=== PATIENT | female | born 1990 | race American Indian/Alaskan Native ===

== ENCOUNTER → 2018-03-31 | Outpatient (CLI) | payer BC ==
--- NOTE | 2018-03-31 16:27 | CT ---
EXAMINATION TYPE: CT sinus wo con DATE OF EXAM: 03/31/2018 COMPARISON: NONE HISTORY: Chronic sinusitis. CT DLP: [address] of the paranasal sinuses was performed in the axial and coronal planes. Bone and soft tissue settings are submitted. The paranasal sinuses demonstrate normal aeration and development. The paranasal sinuses are free of mucosal thickening or air fluid level. The osteal meatal units are patent bilaterally. The nasal septum is midline. No bony destructive changes are seen within the field of view. IMPRESSION: Normal unenhanced CT of the paranasal sinuses.
== END | disposition home or self-care (01) ==
LOC: RADCTMAIN 15:58
PROVIDERS: ATTEND Otolaryngology
DX: J32.9 Chronic sinusitis, unspecified (principal)
CPT/HCPCS: 70486

== ENCOUNTER 2018-06-15 07:16 | Day surgery (SDC) | payer BC ==
[2018-06-07 14:26] VITALS: BMI 24.7
[~2018-06-15 07:16] MED LIST: DEXAMETHASONE SOD PHOSPHATE 10 MG/ML 1 ML VIAL IV ONE; DEXAMETHASONE SOD PHOSPHATE 4 MG/ML 1 ML VIAL IV ONE; HYDROmorphone 0.5 MG/0.5 ML SYRINGE IVP PRN; LACTATED RINGERS 1,000 ML IV SCH; LIDOCAINE 1% 20 ML VIAL (10MG/ML) FOR IV START INTRADERMA PRN; MIDAZOLAM 2 MG/2 ML VIAL IV PRN; ONDANSETRON 4 MG/2 ML VIAL IVP ONE; OXYMETAZOLINE 0.05% NASL SPRAY 1 SPRAY BOTTLE NASAL ONE; ceFAZolin 1,000 MG in DEXTROSE/WATER 1 50ML.BAG IV ONE; fentaNYL (PF) 50 MCG/ML 2 ML AMP IV PRN
[2018-06-15] MEDS ORDERED: PROPOFOL 10 MG/ML 20 ML VIAL IV ONE (08:46)
[2018-06-15] MEDS ORDERED: DEXAMETHASONE SOD PHOS (MDV) 100 MG/10 ML VIAL ONE (08:46)
[2018-06-15] MEDS ORDERED: fentaNYL (PF) 50 MCG/ML 2 ML AMP ONE (08:46)
[2018-06-15] MEDS ORDERED: SUCCINYLCHOLINE CHLORIDE VIAL 200 MG/10 ML VIAL IV ONE (08:46)
[2018-06-15] MEDS ORDERED: MIDAZOLAM 2 MG/2 ML VIAL ONE (08:46)
[2018-06-15] MEDS ORDERED: LIDOCAINE 1% INJ 10MG/ML (20 ML MDV) ONE (08:46)
[2018-06-15] MEDS ORDERED: OFLOXACIN 0.3% OTIC DROPS 5 ML BTL BOTH EARS ONE (09:09)
[2018-06-15] MEDS ORDERED: LIDOCAINE 1%-EPI 1:100,000 20 ML VIAL SQ ONE ×2 (09:09)
[2018-06-15] MEDS ORDERED: OXYMETAZOLINE 0.05% NASL SPRAY 1 SPRAY BOTTLE NASAL ONE (09:15)
[2018-06-15] MEDS ORDERED: LACTATED RINGERS 1,000 ML IV ONE (09:16)
[2018-06-15] MEDS ORDERED: BACITRACIN 500 UNIT/GM OINT 28.4 GM TUBE TOPICAL ONE (09:27)
--- NOTE | 2018-06-15 10:10 | P.OP ---
Date of Procedure: 06/15/18 Preoperative Diagnosis: Chronic otitis media Eustachian tube dysfunction Adenoid hypertrophy Chronic adenoiditis Deviated nasal septum Inferior turbinate hypertrophy Chronic sinusitis Postoperative Diagnosis: Same Procedure(s) Performed: Bilateral ventilation tube placement Adenoidectomy Septoplasty Outfracture and submucous reduction resection of the inferior turbinates Bilateral endoscopic sinus surgery with bilateral anterior ethmoidectomy Anesthesia: YESSY Surgeon: Mukesh Munoz Estimated Blood Loss (ml): 10 Pathology: other (, sinus contents, nasal septal bone and cartilage) Condition: stable Disposition: PACU Indications for Procedure: This is a 28-year-old white female whose had difficulties with chronic and recurrent otitis media as well as eustachian tube dysfunction. She also has chronic nasal airway obstruction and anterior posterior nasal drainage as well as recurrent sinusitis Operative Findings: Bilateral serous otitis media, moderate adenoid hypertrophy, bilateral nasal deviation, inferior turbinate hypertrophy bilateral, mild mucosal thickening anterior ethmoid air cells Description of Procedure: The patient was brought in the operative suite and placed in a supine position. The patient underwent induction of general anesthesia with oral endotracheal intubation without difficulty. The patient was prepped and draped in usual aseptic fashion. The microscope was positioned over the right ear and cerumen was cleaned from the external auditory canal. An anteroinferior myringotomy was placed in radial fashion. A 1.1 mm collar bobbin ventilation tube was placed without difficulty. The serous effusion was aspirated. Ciloxan drops were then placed followed by sterile cotton ball. Attention was then turned to the left ear and the procedure was followed as it had been on the right. The table was turned 90 and patient positioned with head donut and shoulder roll and reprepped and draped in usual aseptic fashion. The McIvor mouth gag was placed and red Hernández catheters placed through the right nasal cavity and pulled through the oropharynx for soft palate retraction. Nasopharynx examined mirror exam and the adenoids were vaporized with suction cautery as they were mildly hypertrophied. This ablated the adenoids and hemostasis was gained with suction cautery. Nasopharyngeal catheter and mouth gag was removed. 1% lidocaine with 1 100,000 epinephrine was then infused submucosally both sides nasal septum as well as lateral nasal wall bilaterally. While taking vasoconstrictive effect the inferior turbinates were infractured with Barnstable elevator and then Coblation was used to ablate a portion of the submucosal soft tissue. These were then outfractured with the Barnstable elevator. A left hemitransfixion incision was made and mucoperichondrial and mucoperiosteal flap on on left elevated. Bony cartilaginous junction was disarticulated and the mucoperiosteal flap on the right was elevated. The flap on the right was elevated. Bony nasal septal deformities were removed Antonietta forceps and an inferior cartilaginous strip was removed leaving a full 1.5 cm caudal strut. Checking intranasally this corrected the nasoseptal deformities and the hemitransfixion incision was closed with 4-0 chromic suture. Proceeding on the left with endoscopic evaluation the middle turbinate was medialized with a Ben[place] elevator and partial uncinectomy was performed. Anterior ethmoidectomy was then performed with microdebrider 4 mm blade. Attention was then turned to the right where the procedure was followed as it had the left. Note that worse in the operating field for monitoring throughout the case and computed tomography scan was on the computer for review throughout the case. Once this completed a small pledget of nasal pore nasal dressing was placed middle meatus under direct visualization. Bilateral Hess airway splints coated bacitracin ointment were placed in nasal cavities and sutured trans-septally with a 4-0 nylon suture. Patient was then suctioned in oral gastric fashion and was allowed to emerge from general anesthesia having tolerated procedure well was excised suite and transferred to postop recovery area in satisfactory condition.
[2018-06-15] MEDS: MEPERIDINE 50 MG/ML SYRINGE IVP ONE ×2 (10:14→10:24)
[2018-06-15] MEDS ORDERED: KETOROLAC 30 MG/ML 1 ML VIAL IVP ONE (10:19)
[2018-06-15] MEDS ORDERED: ONDANSETRON 4 MG/2 ML VIAL IVP ONE (10:23)
[2018-06-15 10:33] VITALS: TEMP 97.1
[2018-06-15] MEDS ORDERED: HYDROcodone/APAP 5-325MG 1 EACH TAB PO ONE (12:51)
[2018-06-15 14:01] VITALS: BP 131/80; PULSE 84; RESP 16
== END 2018-06-15 14:08 | disposition home or self-care (01) ==
LOC: OR 07:16
PROVIDERS: ATTEND Otolaryngology
DX: J32.9 Chronic sinusitis, unspecified (principal); H65.23 Chronic serous otitis media, bilateral; H69.90 Unspecified Eustachian tube disorder, unspecified ear; J35.02 Chronic adenoiditis; J34.2 Deviated nasal septum; J34.3 Hypertrophy of nasal turbinates; D64.9 Anemia, unspecified; F41.9 Anxiety disorder, unspecified; J45.909 Unspecified asthma, uncomplicated; R51 Headache; Z79.51 Long term (current) use of inhaled steroids; Z79.899 Other long term (current) drug therapy; Z79.3 Long term (current) use of hormonal contraceptives; Z88.1 Allergy status to other antibiotic agents; Z88.2 Allergy status to sulfonamides; Z88.8 Allergy status to other drugs, medicaments and biological substances
CPT/HCPCS: 81025; 69436; 42831; 30520; 30140; 31254; J2250; J0330; J1100 ×2; J2175; J2405; J2001; J3010; J1885; J0690; J2704; 88300; 88305

== ENCOUNTER 2018-10-18 19:39 | Emergency (ER) | payer BC ==
[2018-10-18 19:47] VITALS: BP 151/82; PULSE 86; RESP 18; TEMP 98.4
[2018-10-18] MEDS ORDERED: SODIUM CHLORIDE 0.9% 1,000 ML IV STA (20:06)
[2018-10-18 20:46] LABS: Basophils % (A) 0 %; Eosinophils # (A) 0.2 k/uL (0-0.7); Eosinophils % (A) 3 %; HCT 45.6 % (34.0-46.0); HGB 15.5 gm/dL (11.4-16.0); Lymphocytes # (A) 2.4 k/uL (1.0-4.8); Lymphocytes % (A) 33 %; MCH 29.3 pg (25.0-35.0); MCV 86.3 fL (80.0-100.0); Mean Platelet Volume 7.2; Monocytes # (A) 0.4 k/uL (0-1.0); Monocytes % (A) 5 %; Neutrophils # (A) 4.2 k/uL (1.3-7.7); Neutrophils % (A) 58 %; Platelet Count 280 k/uL (150-450); RBC 5.29 m/uL (3.80-5.40); RDW 12.8 % (11.5-15.5); WBC 7.3 k/uL (3.8-10.6)
[2018-10-18 20:52] LABS: Appearance,Urine Cloudy (Clear); Bacteria,Urine Many /hpf; Bilirubin,Urine Negative (Negative); Blood,Urine Negative (Negative); Color,Urine Yellow; Glucose,Urine (UA) Negative (Negative); Ketones,Urine Trace (Negative); Leukocyte Esterase,Urine Moderate (Negative); Mucus,Urine Few /hpf; Nitrite,Urine Negative (Negative); PH, Urine 6.5 (5.0-8.0); Protein,Urine 2+ (Negative); RBC,Urine 3 /hpf (0-5); Specific Gravity,Urine 1.031 (1.001-1.035); Squamous Epithelial Cell,Urine 5 /hpf (0-4)
[2018-10-18 20:57] LABS: Albumin 4.6 g/dL (3.5-5.0); Calcium 9.4 mg/dL (8.4-10.2); Potassium 3.8 mmol/L (3.5-5.1); Total Bilirubin 0.6 mg/dL (0.2-1.3); Total Protein 7.6 g/dL (6.3-8.2)
--- NOTE | 2018-10-18 21:21 | ED ---
General Adult HPI - General Chief complaint: Upper Respiratory Infection Stated complaint: poss sinus infection, red eyes, head pressure Source: patient, RN notes reviewed, old records reviewed Mode of arrival: ambulatory Limitations: no limitations - History of Present Illness Initial comments: 28-year-old female patient with no prior past month history presents to ED for cough, sinus pressure, red eyes, sore throat. Patient states that this has been ongoing for approximately 1 month. Patient has been evaluated approximately 3 times for this issue. On 10/10 patient was evaluated in urgent care, prescribed amoxicillin for sinusitis, patient states that she finished this prescription. Patient states that over the month long duration The symptoms have been waxing and waning. Patient states the cough she is experiencing is dry and nonproductive. Patient states the sinus pressure she is experiencing is consistent with sinus infections she has had in the past. Denies nausea vomiting diarrhea, chest pain, shortness of breath, abdominal pain. Systemic: Pt denies fatigue, myalgia, rash. Pt denies weakness, night sweats, weight loss. Neuro: Pt denies headache, visual disturbances, syncope or pre-syncope. HEENT: Pt denies otalgia, rhinorrhea, pharyngitis or notable lymphadenopathy. Cardiopulmonary: Pt denies chest pain, SOB, heart palpitations, dyspnea on exertion. Abdominal/GI: Pt denies abdominal pain, n/v/d. : Pt denies dysuria, burning w/ urination, frequency/urgency. Denies new onset urinary or bowel incontinence. MSK: Pt denies myalgia, loss of strength or function in extremities. Neuro: Pt denies new onset weakness, paresthesias. - Related Data Home Medications Medication Instructions Recorded Confirmed Cetirizine HCl [Zyrtec] 10 mg PO HS 06/07/18 06/15/18 Fluticasone/Salmeterol [Advair 1 inhalation PO QAM 06/07/18 06/15/18 250-50 Diskus] Montelukast [Singulair] 10 mg PO DAILY 06/07/18 06/15/18 Sertraline HCl [Zoloft] 25 mg PO DAILY 06/07/18 06/15/18 l-Norgest/E.estradiol-E.estrad 1 each PO 1700 06/07/18 06/15/18 [Seasonique 0.15-0.03-0.01 Tab] Previous Rx's Medication Instructions Recorded Levofloxacin [Levaquin] 750 mg PO DAILY 7 Days #7 tab 10/18/18 Allergies Allergy/AdvReac Type Severity Reaction Status Date / Time diphenhydramine HCl Allergy Anaphylaxis Verified 10/18/18 19:45 [From Benadryl] milk Allergy Nausea Verified 10/18/18 19:45 sulfamethoxazole Allergy Unknown Verified 10/18/18 19:45 [From Bactrim] trimethoprim [From Bactrim] Allergy Unknown Verified 10/18/18 19:45 wheat Allergy Rash/Hives Verified 10/18/18 19:45 cashew nut AdvReac Nausea Verified 10/18/18 19:45 Review of Systems ROS Statement: Those systems with pertinent positive or pertinent negative responses have been documented in the HPI. ROS Other: All systems not noted in ROS Statement are negative. Past Medical History Past Medical History: Asthma, GERD/Reflux Additional Past Medical History / Comment(s): migraines, sinus infection, anemia , History of Any Multi-Drug Resistant Organisms: None Reported Past Surgical History: Adenoidectomy, Ear Surgery, Tonsillectomy Additional Past Surgical History / Comment(s): tubes in syd ears x 2 Past Anesthesia/Blood Transfusion Reactions: No Reported Reaction Past Psychological History: Anxiety, Depression Smoking Status: Never smoker - Past Family History Mother Family Medical History: Cancer General Exam - General Exam Comments Initial Comments: Constitutional: NAD, AOX3, Pt has pleasant affect. HEENT: NC/AT, trachea midline, neck supple. Posterior pharynx non erythematous, without exudates. External ears appear normal, without discharge. Mucous membranes moist. Eyes PERRLA, EOM intact. There is no scleral icterus. Bilateral injection noted. No pallor noted. Anterior cervical lymphadenopathy noted. Cardiopulmonary: RRR, no murmurs, rubs or gallops, no JVD noted. Lungs CTAB in anterior and posterior phillips. No peripheral edema. Abdominal exam: Abdomen soft and non-distended. Abdomen non-tender to palpation in all 4 quadrants. Bowel sounds active in LLQ. No hepatosplenomegaly. No ecchymosis Neuro: CN II-XII grossly intact. No nuchal rigidity. MSK: No posterior calf tenderness bilaterally, homans sign negative bilaterally. Posterior tibialis and radial pulse +2 bilaterally. Sensation intact in upper and lower extremities. Full active ROM in upper and lower extremities, 5/5 stregnth. Limitations: no limitations Course Vital Signs 10/18/18 19:45 Temperature 98.4 F Pulse Rate 86 Respiratory 18 Rate Blood Pressure 151/82 O2 Sat by Pulse 99 Oximetry Medical Decision Making - Medical Decision Making 28-year-old female patient with no prior past month history presents to ED for cough, sinus pressure, red eyes, sore throat. Patient states that this has been ongoing for approximately 1 month. Patient has been evaluated approximately 3 times for this issue. On 10/10 patient was evaluated in urgent care, prescribed amoxicillin for sinusitis, patient states that she finished this prescription. Patient states that over the month long duration The symptoms have been waxing and waning. Patient states the cough she is experiencing is dry and nonproductive. Patient states the sinus pressure she is experiencing is consistent with sinus infections she has had in the past. Denies nausea vomiting diarrhea, chest pain, shortness of breath, abdominal pain. Physical exam displayed mild bilateral injection, no purulent drainage from eyes. No other abnormal findings noted. Plain films displayed no acute process. CBC, CMP were not impressive. Heterophile antibody was negative. UA was not impressive. Patient to be prescribed Levaquin for sinusitis. Patient to follow-up with previously established ENT Dr. Munoz in AM. Patient followed PCP in 1-2 days. Patient to return to ED if new signs or symptoms develop. Case discussed with Dr. Burleson. - Lab Data Result diagrams: 10/18/18 20:25 10/18/18 20:25 Lab Results 10/18/18 10/18/18 10/18/18 Range/Units 20:25 20:25 20:25 WBC 7.3 (3.8-10.6) k/uL RBC 5.29 (3.80-5.40) m/uL Hgb 15.5 (11.4-16.0) gm/dL Hct 45.6 (34.0-46.0) % MCV 86.3 (80.0-100.0) fL MCH 29.3 (25.0-35.0) pg MCHC 34.0 (31.0-37.0) g/dL RDW 12.8 (11.5-15.5) % Plt Count 280 (150-450) k/uL Neutrophils % 58 % Lymphocytes % 33 % Monocytes % 5 % Eosinophils % 3 % Basophils % 0 % Neutrophils # 4.2 (1.3-7.7) k/uL Lymphocytes # 2.4 (1.0-4.8) k/uL Monocytes # 0.4 (0-1.0) k/uL Eosinophils # 0.2 (0-0.7) k/uL Basophils # 0.0 (0-0.2) k/uL Sodium (137-145) mmol/L Potassium (3.5-5.1) mmol/L Chloride (98-107) mmol/L Carbon Dioxide (22-30) mmol/L Anion Gap mmol/L BUN (7-17) mg/dL Creatinine (0.52-1.04) mg/dL Est GFR (CKD-EPI)AfAm (>60 ml/min/1.73 sqM) Est GFR (CKD-EPI)NonAf (>60 ml/min/1.73 sqM) Glucose (74-99) mg/dL Calcium (8.4-10.2) mg/dL Total Bilirubin (0.2-1.3) mg/dL AST (14-36) U/L ALT (9-52) U/L Alkaline Phosphatase (38-126) U/L Total Protein (6.3-8.2) g/dL Albumin (3.5-5.0) g/dL Urine Color Yellow Urine Appearance Cloudy H (Clear) Urine pH 6.5 (5.0-8.0) Ur Specific [place] 1.031 (1.001-1.035) Urine Protein 2+ H (Negative) Urine Glucose (UA) Negative (Negative) Urine Ketones Trace H (Negative) Urine Blood Negative (Negative) Urine Nitrite Negative (Negative) Urine Bilirubin Negative (Negative) Urine Urobilinogen 2.0 (<2.0) mg/dL Ur Leukocyte Esterase Moderate H (Negative) Urine RBC 3 (0-5) /hpf Urine WBC 2 (0-5) /hpf Ur Squamous Epith Cells 5 H (0-4) /hpf Urine Bacteria Many H (None) /hpf Urine Mucus Few H (None) /hpf Urine HCG, Qual Not Detected (Not Detectd) Heterophile Antibody (Negative) 10/18/18 10/18/18 Range/Units 20:25 20:25 WBC (3.8-10.6) k/uL RBC (3.80-5.40) m/uL Hgb (11.4-16.0) gm/dL Hct (34.0-46.0) % MCV (80.0-100.0) fL MCH (25.0-35.0) pg MCHC (31.0-37.0) g/dL RDW (11.5-15.5) % Plt Count (150-450) k/uL Neutrophils % % Lymphocytes % % Monocytes % % Eosinophils % % Basophils % % Neutrophils # (1.3-7.7) k/uL Lymphocytes # (1.0-4.8) k/uL Monocytes # (0-1.0) k/uL Eosinophils # (0-0.7) k/uL Basophils # (0-0.2) k/uL Sodium 141 (137-145) mmol/L Potassium 3.8 (3.5-5.1) mmol/L Chloride 105 (98-107) mmol/L Carbon Dioxide 27 (22-30) mmol/L Anion Gap 9 mmol/L BUN 11 (7-17) mg/dL Creatinine 1.00 (0.52-1.04) mg/dL Est GFR (CKD-EPI)AfAm 90 (>60 ml/min/1.73 sqM) Est GFR (CKD-EPI)NonAf 78 (>60 ml/min/1.73 sqM) Glucose 88 (74-99) mg/dL Calcium 9.4 (8.4-10.2) mg/dL Total Bilirubin 0.6 (0.2-1.3) mg/dL AST 29 (14-36) U/L ALT 26 (9-52) U/L Alkaline Phosphatase 43 (38-126) U/L Total Protein 7.6 (6.3-8.2) g/dL Albumin 4.6 (3.5-5.0) g/dL Urine Color Urine Appearance (Clear) Urine pH (5.0-8.0) Ur Specific [place] (1.001-1.035) Urine Protein (Negative) Urine Glucose (UA) (Negative) Urine Ketones (Negative) Urine Blood (Negative) Urine Nitrite (Negative) Urine Bilirubin (Negative) Urine Urobilinogen (<2.0) mg/dL Ur Leukocyte Esterase (Negative) Urine RBC (0-5) /hpf Urine WBC (0-5) /hpf Ur Squamous Epith Cells (0-4) /hpf Urine Bacteria (None) /hpf Urine Mucus (None) /hpf Urine HCG, Qual (Not Detectd) Heterophile Antibody Negative (Negative) Disposition Clinical Impression: Sinusitis Disposition: HOME SELF-CARE Instructions: Urinary Tract Infection in Women (ED), Sinusitis (ED) Prescriptions: Levofloxacin [Levaquin] 750 mg PO DAILY 7 Days #7 tab Is patient prescribed a controlled substance at d/c from ED?: No Referrals: Dereck Ho MD [Primary Care Provider] - 1-2 days Mukesh Munoz MD [STAFF PHYSICIAN] - 1-2 days Time of Disposition: 22:06
--- NOTE | 2018-10-18 21:41 | XR ---
EXAMINATION: XR chest 2V DATE AND TIME: 10/18/2018 9:16 PM CLINICAL INDICATION: PHH; Pain TECHNIQUE: Departmental protocol COMPARISON: 03/24/2008 FINDINGS: The lungs are clear. The pleural spaces are negative. The cardiac silhouette is not enlarged. The remainder of the mediastinal silhouette is unremarkable. The skeletal structures and soft tissues are negative for acute findings. IMPRESSION: NO ACUTE PROCESS.
== END 2018-10-18 22:18 | disposition home or self-care (01) ==
LOC: EC 19:39
DX: J32.9 Chronic sinusitis, unspecified (principal); J45.909 Unspecified asthma, uncomplicated; F41.9 Anxiety disorder, unspecified; F32.9 Major depressive disorder, single episode, unspecified; Z79.51 Long term (current) use of inhaled steroids; Z79.899 Other long term (current) drug therapy; Z88.2 Allergy status to sulfonamides; Z88.8 Allergy status to other drugs, medicaments and biological substances; Z91.011 Allergy to milk products; Z91.018 Allergy to other foods
CPT/HCPCS: 36415; 71046; 80053; 81001; 81025; 85025; 86308; 96360; 96361; 99284

== ENCOUNTER → 2019-02-09 | Day surgery (SDC) | payer BC ==
[~2019-02-09] MED LIST changes: -DEXAMETHASONE SOD PHOSPHATE 10 MG/ML 1 ML VIAL IV ONE; -DEXAMETHASONE SOD PHOSPHATE 4 MG/ML 1 ML VIAL IV ONE; -HYDROmorphone 0.5 MG/0.5 ML SYRINGE IVP PRN; +LIDOCAINE 1% INJ 10MG/ML (20 ML MDV) ONE; -MIDAZOLAM 2 MG/2 ML VIAL IV PRN; -ONDANSETRON 4 MG/2 ML VIAL IVP ONE; -OXYMETAZOLINE 0.05% NASL SPRAY 1 SPRAY BOTTLE NASAL ONE; +PROPOFOL 10 MG/ML 20 ML VIAL IV ONE; -ceFAZolin 1,000 MG in DEXTROSE/WATER 1 50ML.BAG IV ONE; -fentaNYL (PF) 50 MCG/ML 2 ML AMP IV PRN; +fentaNYL (PF) 50 MCG/ML 2 ML AMP ONE
[2019-02-09 12:15] VITALS: RESP 16; TEMP 98.2
[2019-02-09 13:51] VITALS: BP 123/74; PULSE 64
--- NOTE | 2019-02-09 13:57 | P.PCN ---
Date of Procedure: 02/09/19 Procedure(s) Performed: Procedure: Esophagogastroduodenoscopy and biopsy. Preoperative diagnosis: Epigastric pain. Postoperative diagnosis: Gastritis. Preparation and sedation: Was provided by anesthesia. Brief clinical history: The patient is a 28-year-old female who I have seen in 2016 because of epigastric and hypogastric pain. She returned for follow-up earlier this month because of recurrence of her symptoms that started around 2 months ago. Her symptoms occur immediately after eating. She has been having issues with diarrhea as well. Family history of colitis in her grandmother. Procedure: With the patient on her left lateral decubitus position and after informed consent and adequate sedation, I passed the Olympus-GIF H 190 video upper endoscope through the cricopharyngeus down the esophagus. GE junction was around 39 cm from the incisors and there was no obvious hiatal hernia or any evidence of esophagitis or complicated reflux disease. The endoscope was then passed into the stomach which was insufflated with air and inspected in detail including the retroflex view in the cardia. There was mottling and erythema in the stomach most notable in the antrum and there was a small polypoid elevation in the cardia very close to the GE junction which probably represent regenera tive polyp. Pyloric channel, duodenal bulb, post bulbar area and descending duodenum appeared within normal limits. I obtained biopsies from the duodenum, antrum and esophagus as well as a separate biopsy of the cardia polyp then the endoscope was withdrawn. The patient tolerated the procedure well. Plan: The patient was reassured. Will await biopsy results. I will keep you updated on her progress. She will follow-up with you as planned.
== END ==
LOC: ORWHC2ENDO 11:54
DX: K29.50 Unspecified chronic gastritis without bleeding (principal); K21.0 Gastro-esophageal reflux disease with esophagitis; K31.7 Polyp of stomach and duodenum; J45.909 Unspecified asthma, uncomplicated; Z79.51 Long term (current) use of inhaled steroids; Z79.899 Other long term (current) drug therapy; Z88.1 Allergy status to other antibiotic agents; Z88.8 Allergy status to other drugs, medicaments and biological substances
CPT/HCPCS: 81025; 43239; J2001; J3010; J2704; 88305

== ENCOUNTER 2019-04-30 19:32 | Emergency (ER) | payer BC ==
[2019-04-30 19:38] VITALS: BP 143/83; PULSE 69; RESP 18; TEMP 98.1
[2019-04-30] MEDS ORDERED: SODIUM CHLORIDE 0.9% 1,000 ML IV STA (19:43)
[2019-04-30 20:03] LABS: Basophils % (A) 0 %; Eosinophils # (A) 0.2 k/uL (0-0.7); Eosinophils % (A) 4 %; HCT 40.1 % (34.0-46.0); HGB 13.4 gm/dL (11.4-16.0); Lymphocytes # (A) 1.7 k/uL (1.0-4.8); Lymphocytes % (A) 33 %; MCH 29.2 pg (25.0-35.0); MCHC 33.3 g/dL (31.0-37.0); MCV 87.8 fL (80.0-100.0); Mean Platelet Volume 6.9; Monocytes # (A) 0.3 k/uL (0-1.0); Monocytes % (A) 6 %; Neutrophils # (A) 2.8 k/uL (1.3-7.7); Neutrophils % (A) 56 %; Platelet Count 253 k/uL (150-450); RBC 4.57 m/uL (3.80-5.40); RDW 12.9 % (11.5-15.5); WBC 5.1 k/uL (3.8-10.6)
[2019-04-30 20:06] LABS: Appearance,Urine Clear (Clear); Bilirubin,Urine Negative (Negative); Blood,Urine Negative (Negative); Color,Urine Yellow; Glucose,Urine (UA) Negative (Negative); Ketones,Urine Negative (Negative); Leukocyte Esterase,Urine Small (Negative); Nitrite,Urine Negative (Negative); Protein,Urine Negative (Negative); RBC,Urine 3 /hpf (0-5); Squamous Epithelial Cell,Urine 2 /hpf (0-4); WBC,Urine 29 /hpf (0-5)
[2019-04-30 20:17] LABS: ALT 25 U/L (9-52); AST 25 U/L (14-36); African American GFR (CKD) >90 (>60 ml/min/1.73 sqM); Albumin 4.2 g/dL (3.5-5.0); Alkaline Phosphatase 61 U/L (38-126); Amylase 42 U/L (30-110); Anion Gap 8 mmol/L; Blood Urea Nitrogen 11 mg/dL (7-17); Carbon Dioxide 28 mmol/L (22-30); Chloride 105 mmol/L (98-107); Glucose 96 mg/dL (74-99); Lipase 68 U/L (23-300); Potassium 4.3 mmol/L (3.5-5.1); Sodium 141 mmol/L (137-145); Total Bilirubin 0.5 mg/dL (0.2-1.3); Total Protein 6.9 g/dL (6.3-8.2)
--- NOTE | 2019-04-30 20:31 | ED ---
Abdominal Pain HPI - General Chief Complaint: Abdominal Pain Stated Complaint: Abd pain Time Seen by Provider: 04/30/19 19:42 Source: patient Mode of arrival: ambulatory Limitations: no limitations - History of Present Illness Initial Comments: Ankur is a 28-year-old female who presents to the ER today for evaluation of intermittent low back pain and abdominal pain. Patient reports the pain began on , she had left-sided flank pain and nausea and vomiting. She reports that lately night she felt better and did better throughout the day on Wednesday however on Wednesday she then began to feel that she had right-sided back pain. She also reports she is just not feeling well she has some mild abdominal cramping. Patient denies any fevers, chills, nausea or vomiting in the past 24 hours. Patient reports that she suffers from chronic abdominal pain due to gastritis she is followed with gastroenterology and had EGD and colonoscopy in the past and been diagnosed with gastritis. She reports that this is unchanged recently. - Related Data Home Medications Medication Instructions Recorded Confirmed Cetirizine HCl [Zyrtec] 10 mg PO HS 06/07/18 04/30/19 Montelukast [Singulair] 10 mg PO DAILY 06/07/18 04/30/19 Sertraline HCl [Zoloft] 25 mg PO DAILY 06/07/18 04/30/19 l-Norgest/E.estradiol-E.estrad 1 each PO 1700 06/07/18 04/30/19 [Seasonique 0.15-0.03-0.01 Tab] Cranberry Fruit Concentrate [Azo 250 mg PO Q12HR 04/30/19 04/30/19 Cranberry] Fluticasone/Salmeterol [Advair 1 puff INHALATION RT-DAILY 04/30/19 04/30/19 250-50 Diskus] Previous Rx's Medication Instructions Recorded Nitrofurantoin Monohyd/M-Cryst 100 mg PO Q12HR #6 cap 04/30/19 [Macrobid] Allergies Allergy/AdvReac Type Severity Reaction Status Date / Time diphenhydramine HCl Allergy Anaphylaxis Verified 04/30/19 20:03 [From Benadryl] milk Allergy Nausea Verified 04/30/19 20:03 sulfamethoxazole Allergy Rash/Hives Verified 04/30/19 20:03 [From Bactrim] trimethoprim [From Bactrim] Allergy Rash/Hives Verified 04/30/19 20:03 wheat Allergy Rash/Hives Verified 04/30/19 20:03 cashew nut AdvReac Nausea Verified 04/30/19 20:03 Review of Systems ROS Statement: Those systems with pertinent positive or pertinent negative responses have been documented in the HPI. ROS Other: All systems not noted in ROS Statement are negative. Past Medical History Past Medical History: Asthma, GERD/Reflux Additional Past Medical History / Comment(s): STOMACH PAIN HAS BEEN INCREASING IN SERVERITY SINCE OCT 2018. migraines, sinus infection, anemia, History of Any Multi-Drug Resistant Organisms: None Reported Past Surgical History: Adenoidectomy, Ear Surgery, Tonsillectomy Additional Past Surgical History / Comment(s): tubes in syd ears x 3. SINUS SX AND REPAIR DEVIATED SEPTUM Past Anesthesia/Blood Transfusion Reactions: Previous Problems w/ Anesthesia Additional Past Anesthesia/Blood Transfusion Reaction / Comment(s): DIFFICULT INTUBATION Past Psychological History: Anxiety, Depression Smoking Status: Never smoker Past Alcohol Use History: Occasional Past Drug Use History: None Reported - Past Family History Mother Family Medical History: Cancer General Exam - General Exam Comments Initial Comments: Physical Exam GENERAL: Patient is well-developed and well-nourished. Patient is nontoxic and well- hydrated and is in no distress. HENT: Normocephalic, Atraumatic. EYES: PERRL, EOMI PULMONARY: Unlabored respirations. No audible rales rhonchi or wheezing was noted. CARDIOVASCULAR: There is a regular rate and rhythm without any murmurs gallops or rubs. ABDOMEN: Soft and nontender with normal bowel sounds. SKIN: Skin is clear with no lesions or rashes and otherwise unremarkable. : Deferred NEUROLOGIC: Patient is alert and oriented x3. Moving all extremities spontaneously MUSCULOSKELETAL: Normal extremities with adequate strength and full range of motion. No lower extremity swelling or edema. No calf tenderness. PSYCHIATRIC: Normal psychiatric evaluation Limitations: no limitations Course Vital Signs 04/30/19 19:34 Temperature 98.1 F Pulse Rate 69 Respiratory 18 Rate Blood Pressure 143/83 O2 Sat by Pulse 99 Oximetry Medical Decision Making - Medical Decision Making The patient was seen and evaluated, history is obtained from the patient Patient has had intermittent pain in her low back since pain initially was on the left side and is now on the right side Physical exam is unremarkable Labs were ordered, CBC and CMP were unremarkable aside urinalysis concerning for early urinary tract infection Patient denies concern for sexual transmitted infection Results were discussed with patient advised that we will discharge her home on oral antibiotic she should drink plenty of fluids stay hydrated alternate Tylenol and Motrin for discomfort. - Lab Data Result diagrams: 04/30/19 19:54 04/30/19 19:54 Lab Results 04/30/19 04/30/19 04/30/19 Range/Units 19:54 19:54 19:54 WBC 5.1 (3.8-10.6) k/uL RBC 4.57 (3.80-5.40) m/uL Hgb 13.4 (11.4-16.0) gm/dL Hct 40.1 (34.0-46.0) % MCV 87.8 (80.0-100.0) fL MCH 29.2 (25.0-35.0) pg MCHC 33.3 (31.0-37.0) g/dL RDW 12.9 (11.5-15.5) % Plt Count 253 (150-450) k/uL Neutrophils % 56 % Lymphocytes % 33 % Monocytes % 6 % Eosinophils % 4 % Basophils % 0 % Neutrophils # 2.8 (1.3-7.7) k/uL Lymphocytes # 1.7 (1.0-4.8) k/uL Monocytes # 0.3 (0-1.0) k/uL Eosinophils # 0.2 (0-0.7) k/uL Basophils # 0.0 (0-0.2) k/uL Sodium 141 (137-145) mmol/L Potassium 4.3 (3.5-5.1) mmol/L Chloride 105 (98-107) mmol/L Carbon Dioxide 28 (22-30) mmol/L Anion Gap 8 mmol/L BUN 11 (7-17) mg/dL Creatinine 0.91 (0.52-1.04) mg/dL Est GFR (CKD-EPI)AfAm >90 (>60 ml/min/1.73 sqM) Est GFR (CKD-EPI)NonAf 87 (>60 ml/min/1.73 sqM) Glucose 96 (74-99) mg/dL Calcium 9.0 (8.4-10.2) mg/dL Total Bilirubin 0.5 (0.2-1.3) mg/dL AST 25 (14-36) U/L ALT 25 (9-52) U/L Alkaline Phosphatase 61 (38-126) U/L Total Protein 6.9 (6.3-8.2) g/dL Albumin 4.2 (3.5-5.0) g/dL Amylase 42 (30-110) U/L Lipase 68 (23-300) U/L Urine Color Urine Appearance (Clear) Urine pH (5.0-8.0) Ur Specific [place] (1.001-1.035) Urine Protein (Negative) Urine Glucose (UA) (Negative) Urine Ketones (Negative) Urine Blood (Negative) Urine Nitrite (Negative) Urine Bilirubin (Negative) Urine Urobilinogen (<2.0) mg/dL Ur Leukocyte Esterase (Negative) Urine RBC (0-5) /hpf Urine WBC (0-5) /hpf Ur Squamous Epith Cells (0-4) /hpf Urine HCG, Qual Not Detected (Not Detectd) 04/30/19 Range/Units 19:54 WBC (3.8-10.6) k/uL RBC (3.80-5.40) m/uL Hgb (11.4-16.0) gm/dL Hct (34.0-46.0) % MCV (80.0-100.0) fL MCH (25.0-35.0) pg MCHC (31.0-37.0) g/dL RDW (11.5-15.5) % Plt Count (150-450) k/uL Neutrophils % % Lymphocytes % % Monocytes % % Eosinophils % % Basophils % % Neutrophils # (1.3-7.7) k/uL Lymphocytes # (1.0-4.8) k/uL Monocytes # (0-1.0) k/uL Eosinophils # (0-0.7) k/uL Basophils # (0-0.2) k/uL Sodium (137-145) mmol/L Potassium (3.5-5.1) mmol/L Chloride (98-107) mmol/L Carbon Dioxide (22-30) mmol/L Anion Gap mmol/L BUN (7-17) mg/dL Creatinine (0.52-1.04) mg/dL Est GFR (CKD-EPI)AfAm (>60 ml/min/1.73 sqM) Est GFR (CKD-EPI)NonAf (>60 ml/min/1.73 sqM) Glucose (74-99) mg/dL Calcium (8.4-10.2) mg/dL Total Bilirubin (0.2-1.3) mg/dL AST (14-36) U/L ALT (9-52) U/L Alkaline Phosphatase (38-126) U/L Total Protein (6.3-8.2) g/dL Albumin (3.5-5.0) g/dL Amylase (30-110) U/L Lipase (23-300) U/L Urine Color Yellow Urine Appearance Clear (Clear) Urine pH 7.0 (5.0-8.0) Ur Specific [place] 1.020 (1.001-1.035) Urine Protein Negative (Negative) Urine Glucose (UA) Negative (Negative) Urine Ketones Negative (Negative) Urine Blood Negative (Negative) Urine Nitrite Negative (Negative) Urine Bilirubin Negative (Negative) Urine Urobilinogen 2.0 (<2.0) mg/dL Ur Leukocyte Esterase Small H (Negative) Urine RBC 3 (0-5) /hpf Urine WBC 29 H (0-5) /hpf Ur Squamous Epith Cells 2 (0-4) /hpf Urine HCG, Qual (Not Detectd) Disposition Clinical Impression: UTI (urinary tract infection) Disposition: HOME SELF-CARE Condition: Stable Instructions (If sedation given, give patient instructions): Urinary Tract Infection in Women (DC) Prescriptions: Nitrofurantoin Monohyd/M-Cryst [Macrobid] 100 mg PO Q12HR #6 cap Is patient prescribed a controlled substance at d/c from ED?: No Referrals: Dereck Ho MD [Primary Care Provider] - 1-2 days
[2019-04-30] MEDS ORDERED: NITROFURANTOIN MONOHYD/M-CRYST 100 MG CAP PO STA (22:29)
[2019-04-30] MEDS ORDERED: KETOROLAC 30 MG/ML 1 ML VIAL IVP ONE (23:09)
== END 2019-04-30 23:27 | disposition home or self-care (01) ==
LOC: EC 19:32
DX: N39.0 Urinary tract infection, site not specified (principal); J45.909 Unspecified asthma, uncomplicated; F41.9 Anxiety disorder, unspecified; F32.9 Major depressive disorder, single episode, unspecified; Z79.51 Long term (current) use of inhaled steroids; Z79.899 Other long term (current) drug therapy; Z88.1 Allergy status to other antibiotic agents; Z88.2 Allergy status to sulfonamides; Z88.8 Allergy status to other drugs, medicaments and biological substances; Z91.018 Allergy to other foods; Z91.011 Allergy to milk products
CPT/HCPCS: 36415; 80053; 82150; 83690; 85025; 81001; 81025; 99284; 96374; 96361; J1885

== ENCOUNTER 2019-08-23 19:32 | Emergency (ER) | payer BC ==
[2019-08-23 20:10] VITALS: RESP 18
[2019-08-23] MEDS: SODIUM CHLORIDE 0.9% 500 ML 500 ML IV SCH ×2 (21:20→21:43)
[2019-08-23] MEDS ORDERED: ACETAMINOPHEN TAB 500 MG TAB PO STA (21:26)
[2019-08-23 21:58] LABS: Basophils # (A) 0.1 k/uL (0-0.2); Basophils % (A) 1 %; Eosinophils # (A) 0.1 k/uL (0-0.7); Eosinophils % (A) 1 %; HCT 43.8 % (34.0-46.0); HGB 14.8 gm/dL (11.4-16.0); Lymphocytes # (A) 0.9 k/uL (1.0-4.8); Lymphocytes % (A) 9 %; MCH 29.5 pg (25.0-35.0); MCHC 33.7 g/dL (31.0-37.0); MCV 87.5 fL (80.0-100.0); Mean Platelet Volume 7.1; Monocytes # (A) 0.5 k/uL (0-1.0); Monocytes % (A) 6 %; Neutrophils # (A) 8.1 k/uL (1.3-7.7); Neutrophils % (A) 84 %; Platelet Count 233 k/uL (150-450); RBC 5.01 m/uL (3.80-5.40); RDW 12.6 % (11.5-15.5); WBC 9.6 k/uL (3.8-10.6)
[2019-08-23 22:00] LABS: INR 0.9 (<1.2); Partial Thromboplastin Time 25.5 sec (22.0-30.0); Prothrombin Time 9.5 sec (9.0-12.0)
[2019-08-23 22:01] LABS: ALT 19 U/L (9-52); AST 20 U/L (14-36); African American GFR (CKD) >90 (>60 ml/min/1.73 sqM); Albumin 4.2 g/dL (3.5-5.0); Alkaline Phosphatase 82 U/L (38-126); Anion Gap 10 mmol/L; Blood Urea Nitrogen 9 mg/dL (7-17); Calcium 9.3 mg/dL (8.4-10.2); Carbon Dioxide 25 mmol/L (22-30); Chloride 102 mmol/L (98-107); Glucose 90 mg/dL (74-99); Potassium 4.3 mmol/L (3.5-5.1); Sodium 137 mmol/L (137-145); Total Bilirubin 0.6 mg/dL (0.2-1.3); Total Protein 7.1 g/dL (6.3-8.2)
[2019-08-23 22:24] LABS: Appearance,Urine Cloudy (Clear); Bacteria,Urine Few /hpf; Bilirubin,Urine Negative (Negative); Blood,Urine Negative (Negative); Budding Yeast,Urine Occasional /hpf; Color,Urine Yellow; Glucose,Urine (UA) Negative (Negative); Ketones,Urine Trace (Negative); Leukocyte Esterase,Urine Moderate (Negative); Mucus,Urine Rare /hpf; Nitrite,Urine Negative (Negative); Protein,Urine Trace (Negative); RBC,Urine 2 /hpf (0-5); Specific Gravity,Urine 1.015 (1.001-1.035); Squamous Epithelial Cell,Urine 1 /hpf (0-4); Urobilinogen,Urine <2.0 mg/dL (<2.0); WBC,Urine 59 /hpf (0-5)
[2019-08-23] MEDS ORDERED: cefTRIAXone IN SWFI 1,000 MG/10 ML SYRINGE IVP STA (22:40)
[2019-08-23] MEDS ORDERED: SODIUM CHLORIDE 0.9% 1,000 ML IV STA (22:41)
--- NOTE | 2019-08-23 23:26 | ED ---
General Adult HPI - General Chief complaint: Back Pain/Injury Stated complaint: Back Pain Time Seen by Provider: 08/23/19 20:57 Source: patient, RN notes reviewed Mode of arrival: ambulatory Limitations: no limitations - History of Present Illness Initial comments: 29-year-old female with a past medical history of asthma, GERD, migraines, anemia, pyelonephritis presents to the emergency department for a chief complaint of low back pain. Patient states that she has had back pain for about the past week. States she has had kidney infections before and this feels similar. States that today the pain is mostly on the left side. Patient states she has also had a shooting pain in her right leg. Patient has had this several times before. Patient denies any saddle anesthesia or redness of the lower extremities. Ambulatory without difficulty. Patient denies any IV drug abuse. States that she was not aware she had a fever until she came to the emergency department.Patient has no other complaints at this time including shortness of breath, chest pain, abdominal pain, nausea or vomiting, headache, or visual changes. - Related Data Home Medications Medication Instructions Recorded Confirmed Cetirizine HCl [Zyrtec] 10 mg PO HS 06/07/18 08/23/19 Montelukast [Singulair] 10 mg PO DAILY 06/07/18 08/23/19 Sertraline HCl [Zoloft] 25 mg PO DAILY 06/07/18 08/23/19 l-Norgest/E.estradiol-E.estrad 1 tab PO DAILY@1700 06/07/18 08/23/19 [Seasonique 0.15-0.03-0.01 Tab] Previous Rx's Medication Instructions Recorded Cephalexin [Keflex] 500 mg PO Q6HR 14 Days #56 cap 08/23/19 Allergies Allergy/AdvReac Type Severity Reaction Status Date / Time diphenhydramine HCl Allergy Anaphylaxis Verified 08/23/19 20:25 [From Benadryl] milk Allergy Nausea Verified 08/23/19 20:25 sulfamethoxazole Allergy Rash/Hives Verified 08/23/19 20:25 [From Bactrim] trimethoprim [From Bactrim] Allergy Rash/Hives Verified 08/23/19 20:25 wheat Allergy Rash/Hives Verified 08/23/19 20:25 cashew nut AdvReac Nausea Verified 08/23/19 20:25 Review of Systems ROS Statement: Those systems with pertinent positive or pertinent negative responses have been documented in the HPI. ROS Other: All systems not noted in ROS Statement are negative. Past Medical History Past Medical History: Asthma, GERD/Reflux Additional Past Medical History / Comment(s): STOMACH PAIN HAS BEEN INCREASING IN SERVERITY SINCE OCT 2018. migraines, sinus infection, anemia, History of Any Multi-Drug Resistant Organisms: None Reported Past Surgical History: Adenoidectomy, Ear Surgery, Tonsillectomy Additional Past Surgical History / Comment(s): tubes in syd ears x 3. SINUS SX AND REPAIR DEVIATED SEPTUM Past Anesthesia/Blood Transfusion Reactions: Previous Problems w/ Anesthesia Additional Past Anesthesia/Blood Transfusion Reaction / Comment(s): DIFFICULT INTUBATION Past Psychological History: Anxiety, Depression Smoking Status: Never smoker Past Alcohol Use History: Occasional Past Drug Use History: None Reported - Past Family History Mother Family Medical History: Cancer General Exam Limitations: no limitations General appearance: alert, in no apparent distress Head exam: Present: atraumatic, normocephalic, normal inspection Eye exam: Present: normal appearance, PERRL, EOMI. Absent: scleral icterus, conjunctival injection, periorbital swelling ENT exam: Present: normal exam, mucous membranes moist Neck exam: Present: normal inspection, full ROM. Absent: tenderness, meningismus, lymphadenopathy Respiratory exam: Present: normal lung sounds bilaterally. Absent: respiratory distress, wheezes, rales, rhonchi, stridor Cardiovascular Exam: Present: regular rate, normal rhythm, normal heart sounds. Absent: systolic murmur, diastolic murmur, rubs, gallop, clicks GI/Abdominal exam: Present: soft, normal bowel sounds. Absent: distended, tenderness, guarding, rebound, rigid Back exam: Present: CVA tenderness (R), CVA tenderness (L) Course Vital Signs 08/23/19 08/23/19 20:07 22:58 Temperature 101.3 F H Pulse Rate 109 H 80 Respiratory 18 18 Rate Blood Pressure 131/81 119/71 O2 Sat by Pulse 99 98 Oximetry Medical Decision Making - Medical Decision Making Patient had a fever of 101.3 and presentation with a pulse rate of 109. Tylenol was given and pulse rate did improve to 80.CBC CMP unremarkable. However urinalysis does show 59 white blood cells with few white blood cell clumps. Culture pending. Patient likely has pyelonephritis. Patient was given 2 g of IV Rocephin and 2 L of fluids. Patient reevaluated and is well-appearing. Patient is stable. Patient can be treated with oral antibiotics starting t omorrow for pyelonephritis. She will be started on Keflex as she does not have any previous microbiology culture and sensitivities. Culture today is pending. She will follow up with primary care. I recommended returning here if she has any worsening symptoms or does not have improvement in symptoms. - Lab Data Result diagrams: 08/23/19 21:09 08/23/19 21:09 Lab Results 08/23/19 08/23/19 08/23/19 Range/Units 21:09 21: 21:09 WBC 9.6 (3.8-10.6) k/uL RBC 5.01 (3.80-5.40) m/uL Hgb 14.8 (11.4-16.0) gm/dL Hct 43.8 (34.0-46.0) % MCV 87.5 (80.0-100.0) fL MCH 29.5 (25.0-35.0) pg MCHC 33.7 (31.0-37.0) g/dL RDW 12.6 (11.5-15.5) % Plt Count 233 (150-450) k/uL Neutrophils % 84 % Lymphocytes % 9 % Monocytes % 6 % Eosinophils % 1 % Basophils % 1 % Neutrophils # 8.1 H (1.3-7.7) k/uL Lymphocytes # 0.9 L (1.0-4.8) k/uL Monocytes # 0.5 (0-1.0) k/uL Eosinophils # 0.1 (0-0.7) k/uL Basophils # 0.1 (0-0.2) k/uL PT (9.0-12.0) sec INR (<1.2) APTT (22.0-30.0) sec Sodium 137 (137-145) mmol/L Potassium 4.3 (3.5-5.1) mmol/L Chloride 102 (98-107) mmol/L Carbon Dioxide 25 (22-30) mmol/L Anion Gap 10 mmol/L BUN 9 (7-17) mg/dL Creatinine 0.98 (0.52-1.04) mg/dL Est GFR (CKD-EPI)AfAm >90 (>60 ml/min/1.73 sqM) Est GFR (CKD-EPI)NonAf 79 (>60 ml/min/1.73 sqM) Glucose 90 (74-99) mg/dL Plasma Lactic Acid Luiz 0.6 L (0.7-2.0) mmol/L Calcium 9.3 (8.4-10.2) mg/dL Total Bilirubin 0.6 (0.2-1.3) mg/dL AST 20 (14-36) U/L ALT 19 (9-52) U/L Alkaline Phosphatase 82 (38-126) U/L Total Protein 7.1 (6.3-8.2) g/dL Albumin 4.2 (3.5-5.0) g/dL Urine Color Urine Appearance (Clear) Urine pH (5.0-8.0) Ur Specific [place] (1.001-1.035) Urine Protein (Negative) Urine Glucose (UA) (Negative) Urine Ketones (Negative) Urine Blood (Negative) Urine Nitrite (Negative) Urine Bilirubin (Negative) Urine Urobilinogen (<2.0) mg/dL Ur Leukocyte Esterase (Negative) Urine RBC (0-5) /hpf Urine WBC (0-5) /hpf Urine WBC Clumps (None) /hpf Ur Squamous Epith Cells (0-4) /hpf Urine Bacteria (None) /hpf Urine Mucus (None) /hpf Urine Yeast (Budding) (None) /hpf Urine HCG, Qual (Not Detectd) Influenza Type A RNA (Not Detectd) Influenza Type B (PCR) (Not Detectd) 08/23/19 08/23/19 08/23/19 Range/Units 21:09 21:09 21:09 WBC (3.8-10.6) k/uL RBC (3.80-5.40) m/uL Hgb (11.4-16.0) gm/dL Hct (34.0-46.0) % MCV (80.0-100.0) fL MCH (25.0-35.0) pg MCHC (31.0-37.0) g/dL RDW (11.5-15.5) % Plt Count (150-450) k/uL Neutrophils % % Lymphocytes % % Monocytes % % Eosinophils % % Basophils % % Neutrophils # (1.3-7.7) k/uL Lymphocytes # (1.0-4.8) k/uL Monocytes # (0-1.0) k/uL Eosinophils # (0-0.7) k/uL Basophils # (0-0.2) k/uL PT 9.5 (9.0-12.0) sec INR 0.9 (<1.2) APTT 25.5 (22.0-30.0) sec Sodium (137-145) mmol/L Potassium (3.5-5.1) mmol/L Chloride (98-107) mmol/L Carbon Dioxide (22-30) mmol/L Anion Gap mmol/L BUN (7-17) mg/dL Creatinine (0.52-1.04) mg/dL Est GFR (CKD-EPI)AfAm (>60 ml/min/1.73 sqM) Est GFR (CKD-EPI)NonAf (>60 ml/min/1.73 sqM) Glucose (74-99) mg/dL Plasma Lactic Acid Luiz (0.7-2.0) mmol/L Calcium (8.4-10.2) mg/dL Total Bilirubin (0.2-1.3) mg/dL AST (14-36) U/L ALT (9-52) U/L Alkaline Phosphatase (38-126) U/L Total Protein (6.3-8.2) g/dL Albumin (3.5-5.0) g/dL Urine Color Yellow Urine Appearance Cloudy H (Clear) Urine pH 7.0 (5.0-8.0) Ur Specific [place] 1.015 (1.001-1.035) Urine Protein Trace H (Negative) Urine Glucose (UA) Negative (Negative) Urine Ketones Trace H (Negative) Urine Blood Negative (Negative) Urine Nitrite Negative (Negative) Urine Bilirubin Negative (Negative) Urine Urobilinogen <2.0 (<2.0) mg/dL Ur Leukocyte Esterase Moderate H (Negative) Urine RBC 2 (0-5) /hpf Urine WBC 59 H (0-5) /hpf Urine WBC Clumps Few H (None) /hpf Ur Squamous Epith Cells 1 (0-4) /hpf Urine Bacteria Few H (None) /hpf Urine Mucus Rare H (None) /hpf Urine Yeast (Budding) Occasional H (None) /hpf Urine HCG, Qual Not Detected (Not Detectd) Influenza Type A RNA (Not Detectd) Influenza Type B (PCR) (Not Detectd) 08/23/19 Range/Units 21:40 WBC (3.8-10.6) k/uL RBC (3.80-5.40) m/uL Hgb (11.4-16.0) gm/dL Hct (34.0-46.0) % MCV (80.0-100.0) fL MCH (25.0-35.0) pg MCHC (31.0-37.0) g/dL RDW (11.5-15.5) % Plt Count (150-450) k/uL Neutrophils % % Lymphocytes % % Monocytes % % Eosinophils % % Basophils % % Neutrophils # (1.3-7.7) k/uL Lymphocytes # (1.0-4.8) k/uL Monocytes # (0-1.0) k/uL Eosinophils # (0-0.7) k/uL Basophils # (0-0.2) k/uL PT (9.0-12.0) sec INR (<1.2) APTT (22.0-30.0) sec Sodium (137-145) mmol/L Potassium (3.5-5.1) mmol/L Chloride (98-107) mmol/L Carbon Dioxide (22-30) mmol/L Anion Gap mmol/L BUN (7-17) mg/dL Creatinine (0.52-1.04) mg/dL Est GFR (CKD-EPI)AfAm (>60 ml/min/1.73 sqM) Est GFR (CKD-EPI)NonAf (>60 ml/min/1.73 sqM) Glucose (74-99) mg/dL Plasma Lactic Acid Luiz (0.7-2.0) mmol/L Calcium (8.4-10.2) mg/dL Total Bilirubin (0.2-1.3) mg/dL AST (14-36) U/L ALT (9-52) U/L Alkaline Phosphatase (38-126) U/L Total Protein (6.3-8.2) g/dL Albumin (3.5-5.0) g/dL Urine Color Urine Appearance (Clear) Urine pH (5.0-8.0) Ur Specific [place] (1.001-1.035) Urine Protein (Negative) Urine Glucose (UA) (Negative) Urine Ketones (Negative) Urine Blood (Negative) Urine Nitrite (Negative) Urine Bilirubin (Negative) Urine Urobilinogen (<2.0) mg/dL Ur Leukocyte Esterase (Negative) Urine RBC (0-5) /hpf Urine WBC (0-5) /hpf Urine WBC Clumps (None) /hpf Ur Squamous Epith Cells (0-4) /hpf Urine Bacteria (None) /hpf Urine Mucus (None) /hpf Urine Yeast (Budding) (None) /hpf Urine HCG, Qual (Not Detectd) Influenza Type A RNA Not Detected (Not Detectd) Influenza Type B (PCR) Not Detected (Not Detectd) Disposition Clinical Impression: Pyelonephritis Disposition: HOME SELF-CARE Condition: Good Instructions (If sedation given, give patient instructions): Urinary Tract Infection in Women (ED) Additional Instructions: Please take antibiotic as directed. Please follow-up with primary care in 1-2 days. Return to the emergency department if you have any worsening symptoms. Prescriptions: Cephalexin [Keflex] 500 mg PO Q6HR 14 Days #56 cap Is patient prescribed a controlled substance at d/c from ED?: No Referrals: Dereck Ho MD [Primary Care Provider] - 1-2 days Time of Disposition: 23:24
[2019-08-23] MEDS ORDERED: ACET/COD 300 MG/30 MG STARTER PACK 6 TAB BTL PO STA (23:41)
[2019-08-23] MEDS ORDERED: KETOROLAC 30 MG/ML 1 ML VIAL IVP STA (23:41)
[2019-08-23 23:44] VITALS: BP 116/70; PULSE 98; TEMP 98
[2019-08-25 14:52] LABS: C. trachomatis,PCR Negative (Neg,Equiv); Chlamydia trachomatis Source Urine
[2019-08-25 15:19] LABS: N. gonorrhoeae,PCR Negative (Neg,Equiv); Neisseria Source Urine
== END 2019-08-24 00:02 | disposition home or self-care (01) ==
LOC: EC 19:32
DX: N12 Tubulo-interstitial nephritis, not specified as acute or chronic (principal); J45.909 Unspecified asthma, uncomplicated; F32.9 Major depressive disorder, single episode, unspecified; F41.9 Anxiety disorder, unspecified; Z88.2 Allergy status to sulfonamides; Z88.8 Allergy status to other drugs, medicaments and biological substances; Z91.011 Allergy to milk products; Z91.018 Allergy to other foods; Z79.3 Long term (current) use of hormonal contraceptives; Z79.899 Other long term (current) drug therapy; Z53.8 Procedure and treatment not carried out for other reasons
CPT/HCPCS: 36415; 80053; 83605; 85025; 85610; 85730; 81001; 81025; 87040; 87491; 87591; 87086; 87502; 99283; 96374; 96375; 96361 ×2; J0696; J1885; 87077; 87186

== ENCOUNTER → 2020-09-17 | Outpatient (CLI) | payer BC ==
--- NOTE | 2020-09-17 08:33 | US ---
EXAMINATION TYPE: US abdomen complete DATE OF EXAM: 09/17/2020 COMPARISON: CT, US CLINICAL HISTORY: R14.0 Abdominal distension (gaseous). Patient complains of abdominal distention kimberly david after meals; on multiple medications for allergies, meds for control, protonics EXAM MEASUREMENTS: Liver Length: 17.1 cm Gallbladder Wall: 0.2 cm CBD: 0.2 cm Spleen: 12.3 cm Right Kidney: 9.6 x 5.3 x 4.0 cm Left Kidney: 9.4 x 4.5 x 4.0 cm Pancreas: wnl Liver: periportal wall brightness noticed especially left lobe Gallbladder: wnl Evidence for sonographic Rowland's sign: no CBD: wnl Spleen: prominent but size is still wnl as is less than13.0cm Right Kidney: No hydronephrosis or masses seen Left Kidney: No hydronephrosis or masses seen Upper IVC: wnl Abd Aorta: wnl The liver is homogenous. The intrahepatic portion of the IVC and proximal abdominal aorta are within normal limits. There is no evidence of cholelithiasis. Common bile duct is unremarkable. The visu alized portions of the pancreas are homogenous. The spleen is unremarkable. Kidneys are symmetric a nd free of hydronephrosis. No renal lesions are seen. IMPRESSION: No distinct abnormality appreciated at this time.
== END | disposition home or self-care (01) ==
LOC: RADUSWWP 07:34
PROVIDERS: ATTEND Internal Medicine Gastroenterology
DX: R14.0 Abdominal distension (gaseous) (principal)
CPT/HCPCS: 76700

== ENCOUNTER 2020-12-30 10:42 | Emergency (ER) | payer SELFPAY ==
[2020-12-30 10:50] VITALS: RESP 16; TEMP 98.1
--- NOTE | 2020-12-30 10:58 | ED ---
Upper Extremity HPI - General Chief Complaint: Extremity Injury, Upper Stated Complaint: Hand Injury/fall Time Seen by Provider: 12/30/20 10:49 Source: patient, RN notes reviewed Mode of arrival: ambulatory Limitations: no limitations - History of Present Illness Initial Comments: This a 30-year-old female presents emergency Department chief complaint right wrist injury. Patient states that she was caring a bucket yesterday slipped on some ice catching her right wrist. Patient states her hand bent backwards patient is right-hand dominant no other injury no other injuries noted from the fall. Patient states she has pain over the ulnar aspect pain with movement which increases her symptoms. No paresthesias no proximal or distal symptoms - Related Data Home Medications Medication Instructions Recorded Confirmed Cetirizine HCl [Zyrtec] 10 mg PO HS 06/07/18 12/30/20 Montelukast [Singulair] 10 mg PO DAILY 06/07/18 12/30/20 Escitalopram [Lexapro] 10 mg PO DAILY 12/30/20 12/30/20 Famotidine [Pepcid] 20 mg PO BID 12/30/20 12/30/20 LORazepam [Ativan] 0.5 mg PO HS 12/30/20 12/30/20 Levocetirizine Dihydrochloride 5 mg PO DAILY 12/30/20 12/30/20 [Xyzal] Pantoprazole Sodium [Protonix] 40 mg PO DAILY 12/30/20 12/30/20 Previous Rx's Medication Instructions Recorded Ibuprofen [Motrin] 600 mg PO Q8HR PRN #20 tab 12/30/20 Allergies Allergy/AdvReac Type Severity Reaction Status Date / Time diphenhydramine HCl Allergy Anaphylaxis Verified 12/30/20 10:50 [From Benadryl] milk Allergy Nausea Verified 12/30/20 10:50 sulfamethoxazole Allergy Rash/Hives Verified 12/30/20 10:50 [From Bactrim] trimethoprim [From Bactrim] Allergy Rash/Hives Verified 12/30/20 10:50 wheat Allergy Rash/Hives Verified 12/30/20 10:50 cashew nut AdvReac Nausea Verified 12/30/20 10:50 Review of Systems ROS Statement: Those systems with pertinent positive or pertinent negative responses have been documented in the HPI. ROS Other: All systems not noted in ROS Statement are negative. Past Medical History Past Medical History: Asthma, GERD/Reflux Additional Past Medical History / Comment(s): STOMACH PAIN HAS BEEN INCREASING IN SERVERITY SINCE OCT 2018. migraines, sinus infection, anemia, History of Any Multi-Drug Resistant Organisms: None Reported Past Surgical History: Adenoidectomy, Ear Surgery, Tonsillectomy Additional Past Surgical History / Comment(s): tubes in syd ears x 3. SINUS SX AND REPAIR DEVIATED SEPTUM Past Anesthesia/Blood Transfusion Reactions: Previous Problems w/ Anesthesia Additional Past Anesthesia/Blood Transfusion Reaction / Comment(s): DIFFICULT INTUBATION Past Psychological History: Anxiety, Depression Smoking Status: Never smoker Past Alcohol Use History: None Reported Past Drug Use History: None Reported - Past Family History Mother Family Medical History: Cancer General Exam Limitations: no limitations General appearance: alert, in no apparent distress Head exam: Present: atraumatic, normocephalic, normal inspection Neck exam: Present: normal inspection, full ROM. Absent: tenderness, meningismus, lymphadenopathy Respiratory exam: Present: normal lung sounds bilaterally. Absent: respiratory distress, wheezes, rales, rhonchi, stridor Cardiovascular Exam: Present: regular rate, normal rhythm, normal heart sounds. Absent: systolic murmur, diastolic murmur, rubs, gallop, clicks Extremities exam: Present: other (Right wrist there is tenderness over the ulnar aspect of the wrist, pain with range of motion neurovascular intact no tenderness the distal hand of the digits or proximal forearm) Course Vital Signs 12/30/20 10:47 Temperature 98.1 F Pulse Rate 80 Respiratory 16 Rate Blood Pressure 135/70 O2 Sat by Pulse 99 Oximetry Medical Decision Making - Medical Decision Making X-ray reviewed by radiologist no acute fracture. Patient is a right wrist sprain. Patient will be wrapped in Madi wrap will follow-up with orthopedics if no improvement return parameters were discussed. Disposition Clinical Impression: Right wrist sprain Disposition: HOME SELF-CARE Condition: Stable Instructions (If sedation given, give patient instructions): Wrist Injury (ED) Additional Instructions: Please return to the Emergency Department if symptoms worsen or any other concerns. Prescriptions: Ibuprofen [Motrin] 600 mg PO Q8HR PRN #20 tab PRN Reason: Pain Is patient prescribed a controlled substance at d/c from ED?: No Referrals: Dereck Ho MD [Primary Care Provider] - 1-2 days Joseph Donis DO [Doctor of Osteopathic Medicine] - 1-2 days Time of Disposition: 11:44
--- NOTE | 2020-12-30 11:15 | XR ---
EXAMINATION TYPE: XR wrist complete RT DATE OF EXAM: 12/30/2020 COMPARISON: None HISTORY: Pain lateral wrist TECHNIQUE: 4 view right wrist FINDINGS: No acute fracture or dislocation is evident. Soft tissues appear normal. Joint spaces are p reserved. Follow-up exam can be performed 7-10 days from acute trauma for continued pain. If there is pain at t he anatomic snuff box, nuclear medicine bone scan could be performed for additional evaluation. IMPRESSION: 1. No acute osseous abnormality right wrist.
[2020-12-30] MEDS ORDERED: ACET/COD 300 MG/30 MG STARTER PACK 6 TAB BTL PO STA (11:44)
[2020-12-30 12:15] VITALS: BP 129/82; PULSE 75
== END 2020-12-30 12:15 | disposition home or self-care (01) ==
LOC: EC 10:42
DX: S63.501A Unspecified sprain of right wrist, initial encounter (principal); J45.909 Unspecified asthma, uncomplicated; K21.9 Gastro-esophageal reflux disease without esophagitis; F41.9 Anxiety disorder, unspecified; F32.9 Major depressive disorder, single episode, unspecified; Z79.51 Long term (current) use of inhaled steroids; Z79.899 Other long term (current) drug therapy; Z88.8 Allergy status to other drugs, medicaments and biological substances; Z91.011 Allergy to milk products; Z88.2 Allergy status to sulfonamides; Z88.1 Allergy status to other antibiotic agents; Z91.018 Allergy to other foods; W00.0XXA Fall on same level due to ice and snow, initial encounter
CPT/HCPCS: 99283

== ENCOUNTER → 2021-03-25 | Outpatient (CLI) | payer MEDICAID ==
--- NOTE | 2021-03-25 07:39 | CT ---
EXAMINATION TYPE: CT brain wo con DATE OF EXAM: 03/25/2021 COMPARISON: Sinus CT March 31, 2018 HISTORY: migraines headaches. CT DLP: 1049 mGycm. Automated Exposure Control for Dose Reduction was Utilized. TECHNIQUE: CT scan of the head is performed without contrast. FINDINGS: There is no acute intracranial hemorrhage, mass effect, or midline shift identified. The ventricles and sulci are within normal limits in size. Pino-white matter differentiation is maintai jose. The globes are intact and the visualized sinuses remain clear. IMPRESSION: Unremarkable study.
== END | disposition home or self-care (01) ==
LOC: RADCTMAIN 06:58
PROVIDERS: ATTEND Family Medicine
DX: G43.909 Migraine, unspecified, not intractable, without status migrainosus (principal)
CPT/HCPCS: 70450

== ENCOUNTER → 2021-04-01 | Outpatient (CLI) | payer MEDICAID | END | disposition home or self-care (01) | LOC: LABWHC1 14:00 | PROVIDERS: ATTEND Nurse Practitioner | DX: K58.2 Mixed irritable bowel syndrome (principal); K21.9 Gastro-esophageal reflux disease without esophagitis; F33.1 Major depressive disorder, recurrent, moderate; F41.0 Panic disorder [episodic paroxysmal anxiety]; F41.9 Anxiety disorder, unspecified; J45.909 Unspecified asthma, uncomplicated; Z91.09 Other allergy status, other than to drugs and biological substances | CPT/HCPCS: 36415; 84439; 84443 ==

== ENCOUNTER 2021-06-17 08:50 | Day surgery (SDC) | payer MEDICAID ==
[2021-06-12 15:09] VITALS: BMI 26.9
[~2021-06-17 08:50] MED LIST changes: +LIDOCAINE 1% (10MG/ML) FOR IV START INTRADERMA PRN; -LIDOCAINE 1% 20 ML VIAL (10MG/ML) FOR IV START INTRADERMA PRN; -LIDOCAINE 1% INJ 10MG/ML (20 ML MDV) ONE; -PROPOFOL 10 MG/ML 20 ML VIAL IV ONE; -fentaNYL (PF) 50 MCG/ML 2 ML AMP ONE
[2021-06-17 09:17] VITALS: RESP 16; TEMP 97.7
[2021-06-17] MEDS ORDERED: MIDAZOLAM 2 MG/2 ML VIAL ONE (09:53)
[2021-06-17] MEDS ORDERED: fentaNYL (PF) 50 MCG/ML 2 ML AMP ONE (09:53)
--- NOTE | 2021-06-17 10:29 | P.PCN ---
Date of Procedure: 06/17/21 Description of Procedure: BRIEF HISTORY: Patient is a 31-year-old female presenting for outpatient colonoscopy for altered bowel function. Previously the patient has been seen in the GI clinic reporting symptoms of alternating constipation and diarrhea. Occasional episodes of painless bright red blood per rectum. Normally bowel movements are every 1-2 days. PROCEDURE PERFORMED: Colonoscopy with biopsy. PREOPERATIVE DIAGNOSIS: Altered bowel function, change in bowel habits. ESTIMATED BLOOD LOSS: Minimal. IV sedation per Anesthesia. PROCEDURE: After informed consent was obtained, the patient, was brought into the endoscopy unit. IV sedation was administered by Anesthesia under continuous monitoring. Digital rectal examination was normal. Initially the Olympus CF-190 flexible video colonoscope was then inserted in the rectum, gradually advanced into the cecum without any difficulty. Careful examination was performed as the scope was gradually being withdrawn. Ileocecal valve and the appendiceal orifice were visualized and appeared normal. Prep was excellent. Mucosa of the cecum, ascending colon, transverse colon, descending colon, sigmoid colon, and rectum appeared normal, with random biopsies taken of the right left colon and a normal-appearing terminal ileum. Retroflexion was performed in the rectum and no lesions were seen, and internal hemorrhoids seen. The patient tolerated the procedure well. IMPRESSION: Normal-appearing colon from rectum to cecum in normal-appearing terminal ileum with random biopsies taken of the right colon, left colon and terminal ileum. Internal hemorrhoids. RECOMMENDATIONS: Findings of this examination were discussed with the patient and her family. Okay to resume diet. Okay to resume medications. Await pathology from biopsies. Follow up in the GI clinic as scheduled. Continue current medical management.
[2021-06-17 10:50] VITALS: BP 109/75; PULSE 88
== END 2021-06-17 11:36 | disposition home or self-care (01) ==
LOC: ORWHC2ENDO 08:50
PROVIDERS: ATTEND Internal Medicine
DX: K64.8 Other hemorrhoids (principal); K59.00 Constipation, unspecified; J45.909 Unspecified asthma, uncomplicated; K21.9 Gastro-esophageal reflux disease without esophagitis
CPT/HCPCS: 45380; 81025; 88305; J2250; J3010

== ENCOUNTER 2021-07-01 11:32 | Emergency (ER) | payer MEDICAID ==
[2021-07-01 11:53] VITALS: BP 122/80; PULSE 78; RESP 18; TEMP 98.4
[2021-07-01] MEDS ORDERED: KETOROLAC 15 MG/ML 1 ML VIAL IM STA (12:16)
[2021-07-01] MEDS ORDERED: traMADol 50 MG STARTER PACK 3 TAB BTL PO STA (12:20)
--- NOTE | 2021-07-01 12:22 | ED ---
Back Pain HPI - General Chief Complaint: Back Pain/Injury Stated Complaint: Neck/Back Pain Time Seen by Provider: 07/01/21 11:56 Source: patient Limitations: no limitations - History of Present Illness Initial Comments: Patient is a 31-year-old female presenting to the emergency Department with complaints of bilateral upper neck pain that started 2 days ago. Patient states she woke up in the morning with a slight twinge on her right upper trap area and then over the past 2 days and has increased to both sides, lots of tightness and spasming. She states it hurts to even move her neck around. She did go to her PCPs office yesterday who prescribed a muscle relaxer and a very low dose of steroids. She states she took a dose of each of these yesterday without improvement in her symptoms. She denies any numbness and tingling into her arms or hands. She denies any previous cervical or back surgeries. She denies any fevers or chills, no cough or congestion. She denies any falls or trauma. She has no further complaints. - Related Data Home Medications Medication Instructions Recorded Confirmed Cetirizine HCl [Zyrtec] 10 mg PO HS 06/07/18 06/17/21 Montelukast [Singulair] 10 mg PO DAILY 06/07/18 06/17/21 Escitalopram [Lexapro] 10 mg PO DAILY 12/30/20 06/17/21 Famotidine [Pepcid] 20 mg PO BID 12/30/20 06/17/21 Pantoprazole Sodium [Protonix] 40 mg PO DAILY 12/30/20 06/17/21 Multivitamins, Thera [Multivitamin 1 tab PO DAILY 06/12/21 06/12/21 (formulary)] Previous Rx's Medication Instructions Recorded predniSONE [Deltasone] 20 mg PO DAILY 5 Days #5 tab 07/01/21 Allergies Allergy/AdvReac Type Severity Reaction Status Date / Time diphenhydramine HCl Allergy Anaphylaxis Verified 07/01/21 11:53 [From Benadryl] milk Allergy Nausea Verified 07/01/21 11:53 sulfamethoxazole Allergy Rash/Hives Verified 07/01/21 11:53 [From Bactrim] trimethoprim [From Bactrim] Allergy Rash/Hives Verified 07/01/21 11:53 wheat Allergy Rash/Hives Verified 07/01/21 11:53 cashew nut AdvReac Nausea Verified 07/01/21 11:53 Review of Systems ROS Statement: Those systems with pertinent positive or pertinent negative responses have been documented in the HPI. ROS Other: All systems not noted in ROS Statement are negative. Past Medical History Past Medical History: Asthma, GERD/Reflux Additional Past Medical History / Comment(s): Hx migraines, sinus infection, anemia. History of Any Multi-Drug Resistant Organisms: None Reported Past Surgical History: Adenoidectomy, Ear Surgery, Tonsillectomy Additional Past Surgical History / Comment(s): Tubes in bilateral ears X3, sinus surgery, deviated septum repair. Past Anesthesia/Blood Transfusion Reactions: Previous Problems w/ Anesthesia Additional Past Anesthesia/Blood Transfusion Reaction / Comment(s): DIFFICULT INTUBATION. Past Psychological History: Anxiety, Depression Smoking Status: Never smoker Past Alcohol Use History: Occasional Past Drug Use History: None Reported - Past Family History Mother Family Medical History: Cancer General Exam - General Exam Comments Initial Comments: GENERAL: Patient is well-developed and well-nourished. Patient is nontoxic and in no acute distress. HEAD: Atraumatic, normocephalic. EYES: Pupils equal round and reactive to light, extraocular movements intact, sclera anicteric, conjunctiva are normal. Eyelids were unremarkable. ENT: Moist mucous membranes. NECK: Normal range of motion, supple without lymphadenopathy or JVD. No midline tenderness, however bilateral upper trap tightness and spasms. LUNGS: Unlabored respirations. Breath sounds clear to auscultation bilaterally and equal. No wheezes rales or rhonchi. HEART: Regular rate and rhythm without murmurs, rubs or gallops. MUSCULOSKELETAL: Normal extremities with adequate strength and normal range of motion, no pitting or edema. No clubbing or cyanosis. NEUROLOGICAL: Patient is alert and oriented x 3. SKIN: Warm, Dry, normal turgor, no rashes or lesions noted. Limitations: no limitations Course Vital Signs 07/01/21 11:51 Temperature 98.4 F Pulse Rate 78 Respiratory 18 Rate Blood Pressure 122/80 O2 Sat by Pulse 98 Oximetry Medical Decision Making - Medical Decision Making Patient is a 31-year-old female here with bilateral upper trapezius pain and spasming over the past 2 days. She did go to her PCPs office, they prescribed her Flexeril and prednisone 5 mg once daily. She took one dose of each of these without improvement. Her vitals are stable, her exam was consistent with bilateral upper trapezius muscle spasms. I suggested continuing with the flexor all and steroids. I will give her a starter pack of tramadol. She is agreeable to this plan of care. She'll follow back up with her primary care. I'll suggested lots of heat and stretching to the area. Case discussed with Dr. Durán. Disposition Clinical Impression: Trapezius muscle spasm Disposition: HOME SELF-CARE Condition: Stable Instructions (If sedation given, give patient instructions): Muscle Spasm (ED) Additional Instructions: Please return to the Emergency Department if symptoms worsen or any other concerns. Please continue with the muscle relaxers at nighttime, steroids as prescribed. May also take tramadol for more severe pain. Please follow back up with your primary care if symptoms persist. Prescriptions: predniSONE [Deltasone] 20 mg PO DAILY 5 Days #5 tab Is patient prescribed a controlled substance at d/c from ED?: No Referrals: Dereck Ho MD [Primary Care Provider] - 1-2 days Time of Disposition: 12:21
== END 2021-07-01 12:45 | disposition home or self-care (01) ==
LOC: EC 11:32
DX: M62.838 Other muscle spasm (principal); J45.909 Unspecified asthma, uncomplicated; K21.9 Gastro-esophageal reflux disease without esophagitis; F41.9 Anxiety disorder, unspecified; F32.9 Major depressive disorder, single episode, unspecified; Z88.2 Allergy status to sulfonamides; Z88.1 Allergy status to other antibiotic agents; Z91.011 Allergy to milk products; Z90.89 Acquired absence of other organs
CPT/HCPCS: 99283; 96372; J1885

== ENCOUNTER → 2021-10-13 | Outpatient (CLI) | payer MEDICAID, OTHER | END | disposition home or self-care (01) | LOC: LABWHC1 12:54 | PROVIDERS: ATTEND Emergency Medicine | DX: U07.1 COVID-19 (principal) | CPT/HCPCS: 87635 ==

== ENCOUNTER → 2021-10-21 | Outpatient (CLI) | payer MEDICAID ==
[~2021-10-21] MED LIST changes: +BAMLANIVIMAB (EUA) 700 MG, ETESEVIMAB (EUA) 1,400 MG in SODIUM CHLORIDE 0.9% 50 ML IVPB ONE; -LACTATED RINGERS 1,000 ML IV SCH; -LIDOCAINE 1% (10MG/ML) FOR IV START INTRADERMA PRN; +SODIUM CHLORIDE 0.9% 50 ML IVPB ONE; +SODIUM CHLORIDE 0.9% 500 ML 500 ML in EMPTY BAG 1 BAG IV PRN
[2021-10-21 14:02] VITALS: RESP 16
[2021-10-21 14:38] VITALS: BP 123/81; PULSE 83; TEMP 97.6
== END ==
LOC: PROCWHC3 13:36
PROVIDERS: ATTEND Family Medicine
DX: U07.1 COVID-19 (principal); G43.909 Migraine, unspecified, not intractable, without status migrainosus; Z88.8 Allergy status to other drugs, medicaments and biological substances; Z91.011 Allergy to milk products; Z88.2 Allergy status to sulfonamides; Z91.018 Allergy to other foods
CPT/HCPCS: 96360; J3490; M0245

== ENCOUNTER 2021-10-30 12:27 | Emergency (ER) | payer MEDICAID ==
[2021-10-30 12:35] VITALS: BP 134/92; RESP 20; TEMP 98.9
[2021-10-30] MEDS ORDERED: KETOROLAC 15 MG/ML 1 ML VIAL IVP STA (13:18)
[2021-10-30] MEDS ORDERED: ONDANSETRON 4 MG/2 ML VIAL IVP STA (13:20)
[2021-10-30] MEDS ORDERED: SODIUM CHLORIDE 0.9% 500 ML 500 ML IV STA (13:22)
--- NOTE | 2021-10-30 13:40 | ED ---
General Adult HPI - General Chief complaint: Shortness of Breath Stated complaint: SOB Time Seen by Provider: 10/30/21 12:47 Source: patient Mode of arrival: ambulatory Limitations: physical limitation - History of Present Illness Initial comments: This 31-year-old female presents to the emergency department with shortness of breath. Patient tested positive for COVID-19 on October 13, she received an antibody infusion 1 week ago. Since the infusion, she has noticed increase shortness of breath. She states she also has a dry cough and fatigue. She has a past medical history of asthma which she takes Zyrtec and Albuterol Inhaler for. She states she has been using her rescue inhaler 2 times a day since the shortness of breath started one week ago. Patient admits to daily migraines for years, and states they have been worse since her COVID-19 antibody infusion. She denies chest pain, fever, dizziness, nausea or vomiting. - Related Data Home Medications Medication Instructions Recorded Confirmed Cetirizine HCl [Zyrtec] 10 mg PO DAILY 06/07/18 10/30/21 Montelukast [Singulair] 10 mg PO DAILY 06/07/18 10/30/21 Famotidine [Pepcid] 20 mg PO DAILY 12/30/20 10/30/21 Pantoprazole Sodium [Protonix] 40 mg PO DAILY 12/30/20 10/30/21 Acetaminophen [Tylenol] 1,000 mg PO Q4-6H PRN 10/30/21 10/30/21 Liraglutide [Saxenda] 3 mg SQ DAILY 10/30/21 10/30/21 Previous Rx's Medication Instructions Recorded Dexamethasone [Decadron] 6 mg PO DAILY #5 tablet 10/30/21 Allergies Allergy/AdvReac Type Severity Reaction Status Date / Time diphenhydramine HCl Allergy Anaphylaxis Verified 10/30/21 13:43 [From Benadryl] milk Allergy Nausea Verified 10/30/21 13:43 sulfamethoxazole Allergy Rash/Hives Verified 10/30/21 13:43 [From Bactrim] trimethoprim [From Bactrim] Allergy Rash/Hives Verified 10/30/21 13:43 wheat Allergy Rash/Hives Verified 10/30/21 13:43 cashew nut AdvReac Nausea Verified 10/30/21 13:43 Review of Systems ROS Statement: Those systems with pertinent positive or pertinent negative responses have been documented in the HPI. ROS Other: All systems not noted in ROS Statement are negative. Past Medical History Past Medical History: Asthma, GERD/Reflux Additional Past Medical History / Comment(s): Hx migraines, sinus infection, anemia. History of Any Multi-Drug Resistant Organisms: None Reported Past Surgical History: Adenoidectomy, Ear Surgery, Tonsillectomy Additional Past Surgical History / Comment(s): Tubes in bilateral ears X3, sinus surgery, deviated septum repair. Past Anesthesia/Blood Transfusion Reactions: Previous Problems w/ Anesthesia Additional Past Anesthesia/Blood Transfusion Reaction / Comment(s): DIFFICULT INTUBATION. Past Psychological History: Anxiety, Depression Smoking Status: Never smoker Past Alcohol Use History: Occasional Past Drug Use History: None Reported - Past Family History Mother Family Medical History: Cancer General Exam Limitations: physical limitation General appearance: alert, in no apparent distress Head exam: Present: atraumatic, normocephalic, normal inspection Eye exam: Present: normal appearance, PERRL, EOMI. Absent: scleral icterus, conjunctival injection, periorbital swelling Neck exam: Present: normal inspection Respiratory exam: Present: normal lung sounds bilaterally. Absent: respiratory distress, wheezes, rales, rhonchi, stridor Cardiovascular Exam: Present: normal rhythm, tachycardia, normal heart sounds. Absent: systolic murmur, diastolic murmur, rubs, gallop, clicks GI/Abdominal exam: Present: soft, normal bowel sounds. Absent: distended, tenderness, guarding, rebound, rigid Neurological exam: Present: alert, oriented X3 Psychiatric exam: Present: normal affect, normal mood Skin exam: Present: warm, dry, intact, normal color. Absent: rash Course Vital Signs 10/30/21 12:30 Temperature 98.9 F Pulse Rate 108 H Respiratory 20 Rate Blood Pressure 134/92 O2 Sat by Pulse 100 Oximetry Medical Decision Making - Medical Decision Making This 31-year-old female presents to the emergency department chief complaining of COVID-19 causing shortness of breath over the last week. Migraine headache relieved while in the emergency department with Toradol and Zofran. Chest x-ray showed mild central peribronchial cuffing reflecting her chronic asthma. - Lab Data Result diagrams: 10/30/21 14:09 10/30/21 14:09 Lab Results 12/10/30/21 10/30/21 Range/Units 14:09 14:09 14:11 WBC 11.0 H (3.8-10.6) k/uL RBC 5.08 (3.80-5.40) m/uL Hgb 15.5 (11.4-16.0) gm/dL Hct 45.9 (34.0-46.0) % MCV 90.4 (80.0-100.0) fL MCH 30.4 (25.0-35.0) pg MCHC 33.7 (31.0-37.0) g/dL RDW 12.4 (11.5-15.5) % Plt Count 296 (150-450) k/uL MPV 7.0 Neutrophils % 60 % Lymphocytes % 33 % Monocytes % 4 % Eosinophils % 2 % Basophils % 0 % Neutrophils # 6.5 (1.3-7.7) k/uL Lymphocytes # 3.6 (1.0-4.8) k/uL Monocytes # 0.4 (0-1.0) k/uL Eosinophils # 0.3 (0-0.7) k/uL Basophils # 0.0 (0-0.2) k/uL PT 10.0 (9.0-12.0) sec INR 0.9 (<1.2) APTT 23.2 (22.0-30.0) sec D-Dimer 0.25 (<0.60) mg/L FEU Sodium 137 (137-145) mmol/L Potassium 4.1 (3.5-5.1) mmol/L Chloride 100 (98-107) mmol/L Carbon Dioxide 30 (22-30) mmol/L Anion Gap 7 mmol/L BUN 19 H (7-17) mg/dL Creatinine 0.97 (0.52-1.04) mg/dL Est GFR (CKD-EPI)AfAm >90 (>60 ml/min/1.73 sqM) Est GFR (CKD-EPI)NonAf 79 (>60 ml/min/1.73 sqM) Glucose 87 (74-99) mg/dL Calcium 8.9 (8.4-10.2) mg/dL Total Bilirubin 0.8 (0.2-1.3) mg/dL AST 24 (14-36) U/L ALT 49 H (4-34) U/L Alkaline Phosphatase 44 (38-126) U/L Lactate Dehydrogenase 437 (313-618) U/L Total Protein 6.5 (6.3-8.2) g/dL Albumin 3.9 (3.5-5.0) g/dL Disposition Clinical Impression: COVID-19 Disposition: HOME SELF-CARE Condition: Stable Additional Instructions: Return to emergency department if any symptoms worsen. Take Decadron once per day. Take Tylenol or Motrin as directed. Prescriptions: Dexamethasone [Decadron] 6 mg PO DAILY #5 tablet Is patient prescribed a controlled substance at d/c from ED?: No Referrals: Dereck Ho MD [Primary Care Provider] - 1-2 days
--- NOTE | 2021-10-30 14:07 | XR ---
EXAMINATION TYPE: XR chest 2V DATE OF EXAM: 10/30/2021 COMPARISON: 10/18/2018. HISTORY: 31-year-old female cough, shortness of breath, suspected COVID 19 pneumonia TECHNIQUE: PA and lateral views FINDINGS: The cardiomediastinal silhouette, aorta, and pulmonary vasculature are within normal limits. There is mild central peribronchial cuffing. No consolidation or pleural effusion. Bilateral nipple bars. IMPRESSION: Mild central peribronchial cuffing could reflect bronchitis or chronic asthma. No focal infiltrate se en.
[2021-10-30 15:14] LABS: Basophils % (A) 0 %; Eosinophils # (A) 0.3 k/uL (0-0.7); Eosinophils % (A) 2 %; HCT 45.9 % (34.0-46.0); HGB 15.5 gm/dL (11.4-16.0); Lymphocytes # (A) 3.6 k/uL (1.0-4.8); Lymphocytes % (A) 33 %; MCH 30.4 pg (25.0-35.0); MCHC 33.7 g/dL (31.0-37.0); MCV 90.4 fL (80.0-100.0); Monocytes # (A) 0.4 k/uL (0-1.0); Monocytes % (A) 4 %; Neutrophils # (A) 6.5 k/uL (1.3-7.7); Neutrophils % (A) 60 %; Platelet Count 296 k/uL (150-450); RBC 5.08 m/uL (3.80-5.40); RDW 12.4 % (11.5-15.5)
[2021-10-30 15:25] LABS: ALT 49 U/L (4-34); AST 24 U/L (14-36); African American GFR (CKD) >90 (>60 ml/min/1.73 sqM); Albumin 3.9 g/dL (3.5-5.0); Alkaline Phosphatase 44 U/L (38-126); Anion Gap 7 mmol/L; Blood Urea Nitrogen 19 mg/dL (7-17); Calcium 8.9 mg/dL (8.4-10.2); Carbon Dioxide 30 mmol/L (22-30); Chloride 100 mmol/L (98-107); Glucose 87 mg/dL (74-99); LDH 437 U/L (313-618); Non-African American GFR(CKD) 79 (>60 ml/min/1.73 sqM); Potassium 4.1 mmol/L (3.5-5.1); Sodium 137 mmol/L (137-145); Total Bilirubin 0.8 mg/dL (0.2-1.3); Total Protein 6.5 g/dL (6.3-8.2)
[2021-10-30 15:27] LABS: INR 0.9 (<1.2); Partial Thromboplastin Time 23.2 sec (22.0-30.0)
[2021-10-30 16:11] VITALS: PULSE 96
== END 2021-10-30 16:11 | disposition home or self-care (01) ==
LOC: EC 12:27
DX: U07.1 COVID-19 (principal); J45.909 Unspecified asthma, uncomplicated; K21.9 Gastro-esophageal reflux disease without esophagitis; G43.909 Migraine, unspecified, not intractable, without status migrainosus; Z88.8 Allergy status to other drugs, medicaments and biological substances; Z91.011 Allergy to milk products; Z88.2 Allergy status to sulfonamides; Z91.018 Allergy to other foods; Z79.899 Other long term (current) drug therapy
CPT/HCPCS: 36415; 85379; 80053; 83615; 85025; 85610; 85730; 71046; 99285; 96374; 96375; 96361; J2405; J1885

== ENCOUNTER → 2021-11-21 | Outpatient (CLI) | payer MEDICAID ==
--- NOTE | 2021-11-21 15:13 | XR ---
EXAMINATION TYPE: XR chest 2V DATE OF EXAM: 11/21/2021 COMPARISON: 10/30/2021 INDICATION: Asthma TECHNIQUE: Frontal and lateral views of the chest are obtained. FINDINGS: The heart size is normal. The pulmonary vasculature is normal. The lungs are clear. IMPRESSION: 1. No acute pulmonary process.
== END | disposition home or self-care (01) ==
LOC: RADXRMAIN 13:43
PROVIDERS: ATTEND Family Medicine
DX: J45.909 Unspecified asthma, uncomplicated (principal)
CPT/HCPCS: 71046

== ENCOUNTER → 2021-12-25 | Outpatient (CLI) | payer MEDICAID ==
--- NOTE | 2021-12-25 18:13 | CT ---
EXAMINATION TYPE: CT angio chest CT DLP: 198.1 mGycm, Automated exposure control for dose reduction was used. DATE OF EXAM: 12/25/2021 4:51 PM COMPARISON: Chest radiograph from same day. CLINICAL INDICATION:Female, 31 years old with history of R06.02 Shortness of breath; SOB post covid, STAT HOLD/CALL TECHNIQUE/CONTRAST: CTA scan of the thorax is performed with IV Contrast, patient injected with 63cc mL of Isovue 370, pu lmonary embolism protocol. MIP images are created and reviewed. FINDINGS: Pulmonary Artery: There is no evidence for a filling defect within the pulmonary vasculature to sugge st acute pulmonary embolism. The pulmonary artery is of normal size. Lungs/Pleura: No evidence of focal consolidation, pleural effusion or pneumothorax. Right middle lobe pulmonary nodule measuring 5 mm. Airway: Large airways are patent. Heart: Within normal limits for size.. Vasculature: No evidence of aortic aneurysm. Mediastinum: No gross evidence of adenopathy. Musculoskeletal: No acute osseous abnormalities Soft Tissues: Unremarkable. Lower neck: No significant findings. Upper Abdomen: No significant findings. IMPRESSION: 1. No evidence of pulmonary embolism. 2. Right middle lobe nodule measuring 5 mm, likely benign given patient's age.
== END | disposition home or self-care (01) ==
LOC: RADCTMAIN 16:27
PROVIDERS: ATTEND Internal Medicine
DX: R91.1 Solitary pulmonary nodule (principal)
CPT/HCPCS: 71275; Q9967

== ENCOUNTER → 2022-04-01 | Outpatient (CLI) | payer MEDICAID ==
--- NOTE | 2022-04-01 08:24 | CT ---
EXAMINATION TYPE: CT sinus wo con DATE OF EXAM: 04/01/2022 COMPARISON: CT dated 03/31/2018 HISTORY: sinusitis CT DLP: 577.3 mGycm. Automated Exposure Control for Dose Reduction was Utilized. TECHNIQUE: CT scan of the sinuses is performed without contrast, axial images are obtained, coronal r eformatted images are also reviewed. FINDINGS: Mild deviation of the bony nasal septum convex to the left side. Paradoxical middle turbinates. Unrem arkable inferior turbinates. No significant mucosal thickening of the nasal fossa bilaterally. Patent infundibulum bilaterally. Clear ostiomeatal complex bilaterally. 15 mm polyp/retention cyst at the inferior aspect of the left maxillary sinus. Unremarkable maxillary sinuses otherwise. Clear frontal sinus, ethmoid air cells and sphenoid sinus. Patent sphenoethmoidal recesses. Clear visualized mastoid air cells. Unremarkable visualized portion of the brain and orbits. IMPRESSION: 15 mm polyp/retention cyst within the left maxillary sinus, otherwise unremarkable paranasal sinuses.
== END | disposition home or self-care (01) ==
LOC: RADCTMAIN 06:48
PROVIDERS: ATTEND Otolaryngology
DX: J34.1 Cyst and mucocele of nose and nasal sinus (principal)
CPT/HCPCS: 70486

== ENCOUNTER → 2022-11-21 | Outpatient (CLI) | payer MEDICAID ==
[2022-11-21 16:43] LABS: Basophils # (A) 0.02 X 10*3/uL (0.00-0.10); Basophils % (A) 0.4 %; Eosinophils # (A) 0.14 X 10*3/uL (0.04-0.35); Eosinophils % (A) 2.9 %; HCT 45.2 % (37.2-46.3); HGB 14.6 g/dL (12.0-15.0); Immature Grans, Automated 0.4 %; Lymphocytes # (A) 1.99 X 10*3/uL (0.90-5.00); Lymphocytes % (A) 40.5 %; MCH 28.3 pg (27.0-32.0); MCHC 32.3 g/dL (32.0-37.0); MCV 87.8 fL (80.0-97.0); Mean Platelet Volume 10.2 fL (9.5-12.2); Monocytes # (A) 0.36 X 10*3/uL (0.20-1.00); Monocytes % (A) 7.3 %; NRBC Per 100 WBC 0 /100 WBCS (0.0-0.0); Neutrophils # (A) 2.38 X 10*3/uL (1.80-7.70); Neutrophils % (A) 48.5 %; Platelet Count 303 X 10*3/uL (140-440); RBC 5.15 X 10*6/uL (4.10-5.20); RDW 12.3 % (11.5-14.5); WBC 4.91 X 10*3/uL (4.50-10.00)
[2022-11-21 17:01] LABS: African American GFR (CKD) 76.6 (60.0-200.0); Albumin 4.3 g/dL (3.8-4.9); Albumin/Globulin Ratio 2.08 (1.60-3.17); Anion Gap 11.3 mmol/L (10.00-18.00); BUN/Creat Ratio 13.78 Ratio (12.00-20.00); Blood Urea Nitrogen 15.3 mg/dL (9.0-27.0); Calcium 9.1 mg/dL (8.7-10.3); Carbon Dioxide 24.9 mmol/L (20.0-27.5); Globulin 2.1 g/dL (1.6-3.3); Non-African American GFR(CKD) 66.1 (60.0-200.0); Potassium 4.2 mmol/L (3.5-5.5); T4, Free (Free Thyroxine) 1.23 ng/dL (0.800-1.800); Total Bilirubin 0.5 mg/dL (0.30-1.20); Total Protein 6.4 g/dL (6.2-8.2)
== END | disposition home or self-care (01) ==
LOC: LABWHC1 08:45
PROVIDERS: ATTEND Family Medicine
DX: R53.83 Other fatigue (principal)
CPT/HCPCS: 36415; 80053; 84439; 84443; 85025

== ENCOUNTER → 2023-01-28 | Outpatient (CLI) | payer MEDICAID ==
--- NOTE | 2023-01-28 12:06 | CA ---
Transthoracic Echo Report Name: Gracie Lopez Age: 32 Gender: F : 1990 Exam Date: 01/28/2023 08:40 Exam Location: [place] [facility] Ht (in): 63 Wt (lb): 165 Ordering Physician: Rodrigo Sousa MD ([id number]) Attending/Referring Phys: Reading Assistant Daksha Colin RDCS Procedure CPT: Indications: R00.2, R55 Cardiac Hx: Technical Quality: Fair Contrast 1: Total Dose (mL): Contrast 2: Total Dose (mL): MEASUREMENTS (Male / Female) Normal Values 2D ECHO LV Diastolic Diameter PLAX 3.8 cm 4.2 - 5.9 / 3.9 - 5.3 cm LV Systolic Diameter PLAX 1.9 cm IVS Diastolic Thickness 1.0 cm 0.6 - 1.0 / 0.6 - 0.9 cm LVPW Diastolic Thickness 1.0 cm 0.6 - 1.0 / 0.6 - 0.9 cm LV Relative Wall Thickness 0.5 RV Internal Dim ED PLAX 2.7 cm LA Volume 34.2 cm??? 18 - 58 / 22 - 52 cm??? M-MODE Aortic Root Diameter MM 2.6 cm LA Systolic Diameter MM 3.4 cm LA Ao Ratio MM 1.3 AV Cusp Separation MM 1.9 cm DOPPLER AV Peak Velocity 139.8 cm/s AV Peak Gradient 7.8 mmHg AV Mean Velocity 100.1 cm/s AV Mean Gradient 4.2 mmHg AV Velocity Time Integral 26.8 cm LVOT Peak Velocity 78.1 cm/s LVOT Peak Gradient 2.4 mmHg LVOT Velocity Time Integral 16.7 cm MV Area PHT 4.4 cm??? Mitral E Point Velocity 116.5 cm/s Mitral A Point Velocity 61.5 cm/s Mitral E to A Ratio 1.9 MV Deceleration Time 173.3 ms MV E' Velocity 14.2 cm/s Mitral E to MV E' Ratio 8.2 FINDINGS Left Ventricle Normal left ventricular size, wall thickness, systolic function with no obvious regional wall motion abnormalities. Normal left ventricular diastolic filling pattern for age. The ejection fraction is visually estimated at 55-60 %. Right Ventricle The right ventricle is normal in size and function. Right ventricular systolic pressure within normal limits. Right Atrium The right atrium is normal in size. Left Atrium The left atrium is normal in size. Mitral Valve Structurally normal mitral valve without significant stenosis or prolapse. There is no mitral regurgitation. Aortic Valve Structurally normal aortic valve without significant sclerosis or stenosis. There is no aortic regurgitation. Tricuspid Valve Structurally normal tricuspid valve without significant stenosis. Pulmonary artery systolic pressure is normal. Mild tricuspid regurgitation. Pulmonic Valve Structurally normal pulmonic valve without significant stenosis. There is no pulmonic regurgitation. Pericardium Normal pericardium without effusion. Aorta Normal aortic root dimension. CONCLUSIONS Normal LV systolic function Normal RV systolic function Overall normal intracardiac valves No evidence of pericardial effusion Previewed by: Dr. Soham Arguelles MD (Electronically Signed) Final Date: 28 January 2023 12:05
--- NOTE | 2023-01-28 12:07 | CA ---
Exercise Stress Test Report Name: Gracie Lopez Exam Date: 01/28/2023 09:22 Exam Location: [place] [facility] Ht (in): 63 Wt (lb): 165 BSA: 1.78 Ordering Phys: Rodrigo Sousa MD Referring Phys: Merry, Technologist: Colt Grover Age: 32 Gender: F : 1990 Procedure CPT: Indications: R00.2, R55 ICD-10 Codes: Patient History: Vertigo/ Chest pressure/ Short of breath/ Palpitations Medications: Meds past 24 hrs: Pretest Chest Pain: STRESS TEST Abiel Protocol Exercise Duration (min:sec): 09:[address] Depressions (mm): Angina Score: Koenig Score: Resting HR (bpm): 91 Peak HR (bpm): 179 Resting BP (mmHg): 124 / 77 Peak BP (mmHg): / 80 MPHR: 189 Target HR: 161 % MPHR: 95 METS: 11.5 Total Dose: Peak Dose: Atropine: Double Product: BP Response: Stress Termination: Reached target heart rate Stress Symptoms: Dizziness Stress Summary: ECG ANALYSIS Resting ECG: Stress ECG: CONCLUSIONS Excellent exercise tolerance Normal EKG in response to exercise Dr. Soham Arguelles MD (Electronically Signed) Final Date: 28 January 2023 12:06
== END | disposition home or self-care (01) ==
LOC: RADECHMAIN 08:37
PROVIDERS: ATTEND Internal Medicine Clinical Cardiac Electrophysiology
DX: R00.2 Palpitations (principal); R55 Syncope and collapse
CPT/HCPCS: 93017; 93306

== ENCOUNTER 2023-02-04 12:08 | Day surgery (SDC) | payer MEDICAID ==
[~2023-02-04 12:08] MED LIST changes: -BAMLANIVIMAB (EUA) 700 MG, ETESEVIMAB (EUA) 1,400 MG in SODIUM CHLORIDE 0.9% 50 ML IVPB ONE; +SODIUM CHLORIDE 0.9% 1,000 ML IV SCH; -SODIUM CHLORIDE 0.9% 50 ML IVPB ONE; -SODIUM CHLORIDE 0.9% 500 ML 500 ML in EMPTY BAG 1 BAG IV PRN
[2023-02-04 12:48] VITALS: RESP 16; TEMP 99.3
[2023-02-04] MEDS ORDERED: SODIUM CHLORIDE 0.9% 500 ML 500 ML IV ONE (14:45)
[2023-02-04 15:13] VITALS: BP 118/71; PULSE 76
--- NOTE | 2023-02-04 18:39 | P.EPPROC ---
- EP Procedure Note Electrophysiology Procedure Note: Diagnosis Recurrent presyncope Twelve-lead EKG shows sinus rhythm normal VA narrow QRS early repolarization abnormality inferolaterally no notching Tilt table test per protocol Baseline blood pressure 117 ohms and Aurelia his mercury, Baseline heart rate 74 beats a minute line patient was tilted upright at an angle of 70 per protocol Mild increase in blood pressure. Sinus tachycardia noted almost immediately She remained tachycardic throughout the tilt table test She complained of being shaky warm blurred vision and nauseous She complained of palpitations No secondary neurocardiogenic phenomena Impression Normal twelve-lead EKG Postural tachycardia syndrome
== END 2023-02-04 15:33 | disposition home or self-care (01) ==
LOC: CATHEP 12:08
PROVIDERS: ATTEND Internal Medicine Clinical Cardiac Electrophysiology
DX: G90.A Postural orthostatic tachycardia syndrome [POTS] (principal); J45.909 Unspecified asthma, uncomplicated; G43.909 Migraine, unspecified, not intractable, without status migrainosus; Z86.16 Personal history of COVID-19; Z79.51 Long term (current) use of inhaled steroids; Z79.899 Other long term (current) drug therapy; Z88.8 Allergy status to other drugs, medicaments and biological substances; Z88.2 Allergy status to sulfonamides; Z88.6 Allergy status to analgesic agent
CPT/HCPCS: 81025; 82533; 93660

== ENCOUNTER → 2023-04-27 | Outpatient (CLI) | payer MEDICAID | END | disposition home or self-care (01) | LOC: LABWHC1 10:42 | PROVIDERS: ATTEND Family Medicine | DX: G90.A Postural orthostatic tachycardia syndrome [POTS] (principal) | CPT/HCPCS: 36415; 86038 ==

== ENCOUNTER → 2023-12-08 | Outpatient (CLI) | payer MEDICAID ==
--- NOTE | 2023-12-11 17:29 | MR ---
EXAMINATION TYPE: MR brain wo/w con DATE OF EXAM: 12/08/2023 9:48 PM CLINICAL INDICATION:Female, 33 years old with history of G43.919; Chronic migraines with pressure x1 month COMPARISON: 03/28/2022, 03/25/2021. TECHNIQUE: Multi planar, multi sequence imaging was performed through the brain including: T1, T2, In version recovery, susceptibility weighted imaging and gradient echo imaging and Diffusion weighted im aging. The patient was then given intravenous contrast and multi planar, T1 fat-saturation images wer e obtained. IV Contrast: 8 cc Gadavist FINDINGS: The zuleta-white junctions, ventricular system, basal cisterns appear unremarkable. Diffusion-weighted imaging shows no evidence of restricted diffusion to suggest acute/subacute infarct. Intracranial ar terial flow voids are maintained. Midline structures show no abnormality. Scattered foci of high T2 s ignal intensity are seen within the periventricular white matter. The susceptibility weighted images do not reveal any evidence for micro-hemorrhage. After administration of gadolinium, no abnormal enha ncement is seen. The bone marrow signal is within normal limits. Paranasal sinuses and mastoid air cells: No significant paranasal sinus disease. Visualized orbits: Orbital contents are intact. IMPRESSION: 1. No evidence of intracranial mass, acute/subacute infarct, or abnormal enhancement. 2. Scattered white matter changes, findings can be seen sequela of migraines. Likely related to small vessel ischemic disease.
== END | disposition home or self-care (01) ==
LOC: RADMRIMAIN 21:00
PROVIDERS: ATTEND Psychiatry & Neurology Neurology
DX: G93.89 Other specified disorders of brain (principal); G43.919 Migraine, unspecified, intractable, without status migrainosus
CPT/HCPCS: 70553; A9585

== ENCOUNTER → 2024-03-11 | Outpatient (CLI) | payer MEDICAID | END | disposition home or self-care (01) | LOC: LABWHC1 11:44 | PROVIDERS: ATTEND Family Medicine | DX: Z53.9 Procedure and treatment not carried out, unspecified reason (principal) ==

== ENCOUNTER → 2024-03-15 | Outpatient (CLI) | payer OTHER ==
--- NOTE | 2024-03-15 12:46 | XR ---
EXAMINATION TYPE: XR ankle complete 3 views RT, XR tibia fibula 2 views RT, XR foot complete 3 views RT DATE OF EXAM: 03/15/2024 COMPARISON: NONE HISTORY: 33-year-old female pain, swelling, bruising after twisting injury 3 days ago. [id number] SPRAI N OF OTHER LIGAMENT S93.601A S91.001A FINDINGS: Tibia/fibula: No acute fracture of the more proximal to mid tibia or fibula. Ankle: There is lateral malleolar soft tissue swelling along with some anterior soft tissue swelling. Ankle mortise is congruent with preservation of the distal tibiofibular overlap. Talar dome is intact. No a cute fracture, subluxation, dislocation. Subtalar joint is aligned. Smooth delineation to the Deb s tendon. Foot: No acute fracture, subluxation, or dislocation. Joint spaces throughout are maintained. IMPRESSION: 1. Tibia/fibula: No acute osseous anomaly seen. 2. Ankle: Anterior and lateral soft tissue swelling. No underlying acute osseous abnormality seen. Co rrelate for underlying lateral ligamentous injury. 3. Foot: No acute osseous abnormality seen.
== END | disposition home or self-care (01) ==
LOC: RADXRMAIN 11:48
PROVIDERS: ATTEND Emergency Medicine
DX: S93.491A Sprain of other ligament of right ankle, initial encounter (principal); S93.601A Unspecified sprain of right foot, initial encounter; S91.001A Unspecified open wound, right ankle, initial encounter; M25.471 Effusion, right ankle

== ENCOUNTER → 2024-03-28 | Outpatient (CLI) | payer OTHER ==
--- NOTE | 2024-03-28 15:36 | XR ---
EXAMINATION TYPE: XR ankle complete RT DATE OF EXAM: 03/28/2024 COMPARISON: Right tibia and fibula 03/15/2024 HISTORY: Sprain right ankle, pain TECHNIQUE: 3 view right ankle FINDINGS: Soft tissue swelling is over the lateral malleolus. The ankle mortise is intact. No acute d isplaced fractures are evident. No subacute fractures identified. Additional imaging can be performed as clinically indicated. IMPRESSION: 1. Soft tissue swelling lateral malleolus.
== END | disposition home or self-care (01) ==
LOC: RADXRMAIN 15:03
PROVIDERS: ATTEND Emergency Medicine
DX: M79.89 Other specified soft tissue disorders (principal); S93.491D Sprain of other ligament of right ankle, subsequent encounter; W18.42XD Slipping, tripping and stumbling without falling due to stepping into hole or opening, subsequent encounter; Y92.481 Parking lot as the place of occurrence of the external cause

== ENCOUNTER → 2024-04-26 | Outpatient (CLI) | payer OTHER ==
--- NOTE | 2024-05-03 09:58 | MR ---
EXAMINATION TYPE: MR ankle RT wo con DATE OF EXAM: 04/26/2024 COMPARISON: Radiograph 03/28/2024 HISTORY: 33-year-old female S93.491D LIG SPRAIN S93.601D R FT SPRAIN S91.001D, Right ankle pain and s welling since fell in a hole March 13, 2024 at work TECHNIQUE: Multiplanar, multisequence images of the right ankle were obtained without IV contrast. FINDINGS: There is some lateral malleolar soft tissue swelling present. Some reactive mild marrow edema within the inferior tip of the lateral malleolus. The ATFL, PTFL, and CFL appear intact. Mild to moderate tenosynovial fluid along the underlying peroneal tendons. The adjacent peroneal brev is shows a tiny partial-thickness split tear measuring approximately 1.3 cm long, axial images 18 thr ough 21. No retracted tear is seen. The syndesmosis and anterior extensor tendons appear satisfactory. Mild tenosynovial fluid along the inframalleolar posterior tibial tendon. Medial flexor tendons and d eltoid spring ligament complex otherwise appear intact. Achilles tendon is normal and intact. Origin of the plantar fascia is intact. The tibiotalar joint and subtalar joints appear normal. Preserved fatty signal within the sinus Tarsi. There is some crowding along the tarsal tunnel located just behind the posterior tibial neurovascular bundle due to an accessory muscle. No significant abnormal edema seen here. Mild capsular hypertrophy along the dorsal aspect of the talonavicular joint may reflect sequela of a mild joint sprain. No acute or healing fractures seen. IMPRESSION: 1. Either a bone bruise or reactive edema at the inferior tip of the lateral malleolus. There is mild -to-moderate tenosynovitis of the underlying peroneal tendons and some fraying versus a tiny partial- thickness longitudinal tear of the peroneus brevis just adjacent for a span of 1.3 cm. No retracted t ear. 2. Some hypertrophy of the dorsal talonavicular joint capsule could reflect sequela of a low-grade or chronic joint sprain. 3. No acute or healing fracture is seen. 4. Anatomic variation with a flexor digitorum accessorius longus crowding the tarsal tunnel.
== END | disposition home or self-care (01) ==
LOC: RADMRIMAIN 14:43
PROVIDERS: ATTEND Emergency Medicine
DX: S93.491D Sprain of other ligament of right ankle, subsequent encounter (principal); S93.601D Unspecified sprain of right foot, subsequent encounter; S91.001D Unspecified open wound, right ankle, subsequent encounter; W17.2XXD Fall into hole, subsequent encounter

== ENCOUNTER → 2024-05-04 | Outpatient (CLI) | payer MEDICAID ==
--- NOTE | 2024-05-05 17:18 | CA ---
Transthoracic Echo Report Name: Gracie Lopez Age: 33 Gender: F : 1990 Exam Date: 05/04/2024 16:31 Exam Location: [place] [facility] Ht (in): 63 Wt (lb): 178 Ordering Physician: Aishwarya Ceballos MD Attending/Referring Phys: Aishwarya Ceballos MD [employer] Killer Procedure CPT: Indications: G90.A POSTURAL ORTHOSTATIC TACHYCARDIA SYNDROME [P Cardiac Hx: Technical Quality: Fair Contrast 1: Agitated Saline Total Dose (mL): 30 Contrast 2: Total Dose (mL): MEASUREMENTS (Male / Female) Normal Values 2D ECHO LV Diastolic Diameter PLAX 3.8 cm 4.2 - 5.9 / 3.9 - 5.3 cm LV Systolic Diameter PLAX 2.4 cm IVS Diastolic Thickness 1.1 cm 0.6 - 1.0 / 0.6 - 0.9 cm LVPW Diastolic Thickness 1.1 cm 0.6 - 1.0 / 0.6 - 0.9 cm LV Relative Wall Thickness 0.6 FINDINGS Left Ventricle Normal left ventricular wall thickness. Left ventricular cavity size normal. Normal left ventricular systolic function with no obvious regional wall motion abnormalities. Left ventricular ejection fraction is estimated at 55%. Right Ventricle Right Atrium Negative agitated saline bubble study for right to left shunt. Left Atrium Mitral Valve Aortic Valve Tricuspid Valve Pulmonic Valve Pericardium No pericardial effusion. Aorta CONCLUSIONS Limited echocardiogram LVEF 55 to 60% No obvious regional wall motion abnormality Normal LV cavity size, and wall thickness No right to left shunting noticed on bubble study No pericardial effusion Previewed by: Dr Vijay Ford (Electronically Signed) Final Date: 05 May 2024 17:17
== END | disposition home or self-care (01) ==
LOC: RADECHMAIN 16:24
PROVIDERS: ATTEND Internal Medicine
DX: G90.A Postural orthostatic tachycardia syndrome [POTS] (principal); G45.9 Transient cerebral ischemic attack, unspecified; R55 Syncope and collapse
CPT/HCPCS: 93308

== ENCOUNTER → 2024-05-06 | Outpatient (CLI) | payer MEDICAID ==
[2024-05-06 12:17] LABS: INR 0.9 (<1.2); Partial Thromboplastin Time 23.2 sec (22.0-30.0); Prothrombin Time 9.7 sec (10.0-12.5)
[2024-05-06 23:11] LABS: HCT 46.8 % (37.2-46.3); HGB 15.5 g/dL (12.0-15.0); MCH 30.5 pg (27.0-32.0); MCHC 33.1 g/dL (32.0-37.0); MCV 92.1 FL (80.0-97.0); Mean Platelet Volume 10.3 FL (9.5-12.2); NRBC Per 100 WBC 0 X 10*3/uL (0.00-0.01); Platelet Count 368 X 10*3/uL (140-440); RBC 5.08 X 10*6/uL (4.10-5.20); RDW 12.4 % (11.5-14.5); WBC 6.66 X 10*3/uL (4.50-10.00)
[2024-05-06 23:43] LABS: Basophils # (A) 0.04 X 10*3/uL (0.00-0.10); Basophils % (A) 0.6 %; Eosinophils # (A) 0.35 X 10*3/uL (0.04-0.35); Eosinophils % (A) 5.3 %; Lymphocytes # (A) 1.91 X 10*3/uL (0.90-5.00); Lymphocytes % (A) 28.7 %; Monocytes # (A) 0.39 X 10*3/uL (0.20-1.00); Monocytes % (A) 5.9 %; Neutrophils # (A) 3.95 X 10*3/uL (1.80-7.70); Neutrophils % (A) 59.2 %; RBC Morphology Normal (Normal)
== END | disposition home or self-care (01) ==
LOC: LABWHC1 11:49
PROVIDERS: ATTEND Family Medicine
DX: G45.9 Transient cerebral ischemic attack, unspecified (principal)
CPT/HCPCS: 36415; 85025; 85610; 85730

== ENCOUNTER → 2024-05-20 | Outpatient (CLI) | payer MEDICAID | END | disposition home or self-care (01) | LOC: LABWHC1 11:54 | PROVIDERS: ATTEND Family Medicine | DX: G45.9 Transient cerebral ischemic attack, unspecified (principal) | CPT/HCPCS: 36415; 81291 ==

== ENCOUNTER → 2024-10-28 | Outpatient (CLI) | payer MEDICAID | END | disposition home or self-care (01) | LOC: LABWHC1 11:08 | PROVIDERS: ATTEND Psychiatry & Neurology Neurology | DX: R21 Rash and other nonspecific skin eruption (principal); H57.9 Unspecified disorder of eye and adnexa | CPT/HCPCS: 36415; 82164; 85652; 86038; 86235 ==